=== PATIENT | male | born 1945 | race Caucasian/White ===

== ENCOUNTER 2019-04-05 11:18 | Day surgery (SDC) | payer MEDICARE, BC ==
[2019-04-02 17:01] VITALS: BMI 28.8
[~2019-04-05 11:18] MED LIST: Lidocaine 1% PF 5 ML VIAL ONE; Ondansetron PF 4 MG/2 ML Vial ONE; PROPOFOL 200 MG/20 ML VIAL ONE
[2019-04-05] MEDS ORDERED: Fentanyl 100 MCG/2 ML VIAL ONE (13:08)
[2019-04-05] MEDS ORDERED: Iothalamate Meglumine 60% 50 ML VIAL FS ONE (13:10)
[2019-04-05] MEDS ORDERED: ceFAZolin Sodium (SDC) 2 GM/100 ML BAG ONE (13:12)
[2019-04-05 13:24] LABS: #Lymphocytes 1.7 thou/uL (1.20-3.40); #Monocytes 1.3 thou/uL (0.11-0.59); #Neutrophils 6.6 thou/uL (1.40-6.50); %Basophils 0.3 % (0.0-1.0); %Eosinophils 0.5 % (0.0-10.0); %Lymphocytes 17.4 % (21.0-51.0); %Monocytes 13.3 % (0.0-10.0); %Neutrophils 68.6 % (42.0-75.0); Hemoglobin 15.3 g/dL (14.0-18.0); Mean Corpuscular Volume 96.8 fL (78.0-98.0); Platelet Count 213 thou/uL (130-400); RBC Distribution Width 11.5 % (11.5-14.5); Red Blood Cell (RBC) Count 4.63 mill/uL (4.70-6.10); White Blood Cell (WBC) Count 9.7 thou/uL (4.8-10.8)
[2019-04-05 13:27] LABS: PTT 26.8 SEC (22.9-36.1)
[2019-04-05 13:28] LABS: Prothrombin Time 12.8 SEC (12.0-14.7)
[2019-04-05 13:43] LABS: Anion Gap 14 mmol/L (10-20); BUN (Urea Nitrogen) 26 mg/dL (8.4-25.7); Calc. Creatinine Clearance 31 mL/min (70-130); Calcium 9.3 mg/dL (7.8-10.44); Carbon Dioxide 26 mmol/L (23-31); Chloride 103 mmol/L (98-107); Estimated GFR-MDRD 25; Glucose 100 mg/dL (83-110); Potassium 4.6 mmol/L (3.5-5.1); Sodium 138 mmol/L (136-145)
--- NOTE | 2019-04-05 14:50 | RAD ---
EXAM: XR IVP Retrograde PROVIDED CLINICAL HISTORY: Placement of ureteral stents. Patient with right flank pain and hematuria. COMPARISON: CT abdomen and pelvis on 03/25/2019. FINDINGS/IMPRESSION: 19 intraoperative fluoroscopic images from bilateral retrograde urogram studies are submitted for int erpretation. The senior bi developer image demonstrates no suspicious calcifications. Left retrograde urogram demonstrates no overt hydronephrosis or hydroureter. No persistent filling de fect is seen within the ureters or renal collecting system on the left. Retrograde study on the right demonstrates dilatation of the right ureter with multiple filling defec ts which may related to gas or small amount of hemorrhage. Further imaging prior to stent placement demonstrates contrast outside the confines of the proximal right ureter suggesting extravasation of c ontrast. Final image does demonstrate a double pigtail right ureteral stent in place. There is mild blunting of the calyces of the right renal collecting system suggesting hydronephrosis with dilatatio n of the proximal right ureter. There is suggestion of a transition point within the mid right ureter at the level of the inferior aspect right sacroiliac joint with mild effacement of the ureter at this location. On the recent CT scan examination, there is mild increased density level and focal dilatation of the ureter in this region. Transitional cell carcinoma in this region is a possib ility. Correlation with intraoperative findings is recommended.
--- NOTE | 2019-04-05 19:02 | OP ---
DATE OF PROCEDURE: 04/05/2019 PREOPERATIVE DIAGNOSES: Recent gross hematuria, right hydronephrosis on recent CAT scan, history of transitional cell carcinoma of the bladder and also elevated creatinine. POSTOPERATIVE DIAGNOSES: Recent gross hematuria, right hydronephrosis on recent CAT scan, history of transitional cell carcinoma of the bladder and also elevated creatinine. 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 ANESTHESIA: General. ESTIMATED BLOOD LOSS: Minimal. FINDINGS: He has a stricture of the bulb, which we have known about for years. I have dealt with it during office cystoscopies in followup for his bladder cancer. This was gently dilated with a 17-Nepalese sheath easily over a guidewire and then that allowed us to pass a 22-Nepalese sheath. The bladder was free of tumor, foreign bodies, or stones. Both ureteral orifices were very small and could not get a cone-tipped 5-Nepalese to intubate them, so we had to use the guidewire and the open-ended Pollack catheter. Retrograde study on the left side showed some air bubbles, but otherwise negative. On the right side, there was a normal-appearing distal ureter and then an area of narrowing of the ureter and obstruction with some difficulty getting contrast to go proximal to it. Once the retrograde study was done, there was bloody efflux from the distal right ureter. We were able to eventually pass an angle tipped Glidewire by this obstructing lesion. Did get a small ureteral leak, in doing this we initially tried a guidewire and then a straight Glidewire and an angled guidewire before being able to get to the ureter above this region. Once the 5-Nepalese Pollack catheter was placed past this region, we drained probably 20 to 25 mL of very dark brownish maroonish color urine, which was probably a lot of old blood within this was sent off for a urine cytology. DRAINS PLACED: A 6 x 24 Polaris double-J stent without a string. An 18-Nepalese Huerta catheter was passed over a guidewire because of the stricture that we had to dilate. Could not do ureteroscopy on him and is hoping we may be able to, but his ureteral orifices were just too small and then with a small ureteral leak that would preclude doing any further also. DESCRIPTION OF PROCEDURE: After obtaining written and verbal consent from the patient after receiving some IV antibiotics, he was taken to the operating suite. He was placed in a supine position on the treatment table. PlexiPulses were placed on his lower extremities and turned on. He was given a general anesthetic and oral obturator intubation. He was then placed in the dorsal lithotomy position, and he was sterilely prepped and draped for cystoscopy. The C-arm was placed over him so that his abdomen and pelvis were easily seen. Cystoscopy was initially performed with a 22-Nepalese sheath. It passed down to the level of the stricture, but not guidewire was fed across this and into the bladder and then this was backloaded through a 17-Nepalese sheath, which was well lubricated and using a 30-degree lens easily passed across the stricture into the bladder. The bladder was examined with 30 and the 70-degree lens. The guidewire was then replaced, and then that sheath was removed and then we went in with a 22-Nepalese sheath easily passed through the stricture and into the bladder. At this point, we did a left retrograde, initially we had a 5-Nepalese cone-tipped catheter flushed with contrast, but we could not get the very small left ureteral orifice to accept this. We then used a guidewire. We could get up 2 to 3 cm with a guidewire then passed the open-ended catheter over this and then removed the guidewire and injecting contrast and doing a retrograde study of the left side apart from some air bubbles that looked normal and did drain well. We then attempted the same on the right. Also, the Pollack catheter would not go through the right ureteral orifice because of its size, so we fed a guidewire up a centimeter so and then a Pollack catheter over this, removing the guidewire and injecting contrast in a retrograde manner that showed a few 3 to 4 cm of the distal ureter to be normal before sharply and did an abrupt area of narrowing. There was also some blood coming around the open-ended catheter at this point when the contrast was stopped injected. We did get a little bit of contrast to go proximal to this area in a tortuous ureter. We then attempted to pass a guidewire unsuccessfully, straight Glidewire unsuccessfully and then an angled guidewire, which we were able to manipulate by. During this process, we did get a small ureteral perforation. Once we were by this obstructing lesion with the angled Glidewire, we were able to pass the 5-Nepalese Pollack catheter up over the Glidewire into the dilated ureter proximal to this lesion. We were able to drain about 25 mL of the brownish maroonish urine that probably is lot of old blood and this was all sent for urine cytology. Had no odor to it. We then injected some contrast with the tip of the Pollack catheters and area of the renal pelvis to fill out the renal pelvis, which was mildly to moderately dilated. We then fed a 0.003 guidewire through the Pollack catheter and removed the Pollack catheter and advanced over the guidewire. A 6 x 24 Polaris double-J stent pushing it up into place and gave a pusher, so this proximal coil in the renal pelvis and its distal end coiled in the bladder when the wire was removed. At this point, we fed a guidewire through the 22-Nepalese sheath into the bladder and then removed the sheath and then over the guidewire, passed an 18-Nepalese Huerta catheter and placed 20 mL in the balloon. We irrigated the catheter 2 to 3 times with some sterile water was irrigating easily. There was no significant bleeding. At this point, the patient was awakened and extubated and taken by kody to the recovery room. Job ID: [id number]
== END 2019-04-05 17:10 | disposition home or self-care (01) ==
LOC: SDC 11:18
PROVIDERS: ATTEND Urology
PROC: 0T768DZ Dilation of Right Ureter with Intraluminal Device, Via Natural or Artificial Opening Endoscopic (ICD-10-PCS; principal; 2019-04-05)
PROC: 0WHR8YZ Insertion of Other Device into Genitourinary Tract, Via Natural or Artificial Opening Endoscopic (ICD-10-PCS; 2019-04-05)
DX: C67.9 Malignant neoplasm of bladder, unspecified (principal); N13.39 Other hydronephrosis; R31.0 Gross hematuria; I10 Essential (primary) hypertension; E78.00 Pure hypercholesterolemia, unspecified; K21.9 Gastro-esophageal reflux disease without esophagitis; Z88.2 Allergy status to sulfonamides
CPT/HCPCS: 52332; 74420; 80048; 85025; 85610; 85730; 88112; C1758; C1769; 36415; J0690; J2001; J2405; J2704; J3010

== ENCOUNTER 2019-04-29 08:16 | Outpatient (CLI) | payer MEDICARE, BC ==
--- NOTE | 2019-04-29 14:06 | PET ---
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 Exam requ ested for initial staging. TECHNIQUE: PET scanning with CT attenuation correction was performed from the base of the brain through the prox imal thighs following the intravenous administration of 11.3 mCi F18-FDG in the left antecubital tony a. COMPARISON: None. CORRELATION: CT abdomen and pelvis of 03/25/19 from [facility]. FINDINGS: There is increased uptake adjacent to the right distal ureter with a SUV of 13. No yaw hypermetabolism is seen in the neck, chest, or abdomen. No hypermetabolic pulmonary nodules, liver, or adrenal lesions are seen. There are multiple hypermetabolic foci in the pelvic bones with SUV of 2.9 in the left iliac bone, 3. 8 in the right iliac bone, 5.8 at S1, 5.8 in the right superior acetabulum, and 2.4 in the left super ior acetabulum. There is physiologic activity in the GI and tracts, and the visualized portions of the brain. The CT scan used for attenuation correction demonstrates no evidence of pleural effusions or ascites. 3.0 cm infrarenal abdominal aortic aneurysm is again seen. There is colonic diverticulosis. 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 POS: RAZ
== END 2019-04-29 08:17 | disposition home or self-care (01) ==
LOC: PET 08:16
PROVIDERS: ATTEND Internal Medicine Hematology & Oncology
DX: C66.1 Malignant neoplasm of right ureter (principal)
CPT/HCPCS: 78815; A9552

== ENCOUNTER 2019-05-07 08:18 | Day surgery (SDC) | payer MEDICARE, BC ==
[2019-05-06 11:55] VITALS: BMI 31.1
[2019-05-07 09:00] LABS: Hemoglobin 13.8 g/dL (14.0-18.0); Mean Corpuscular HGB CONC 33.1 g/dL (32.0-36.0); Mean Corpuscular Hemoglobin 31.4 pg (27.0-31.0); Mean Corpuscular Volume 95.1 fL (78.0-98.0); Platelet Count 306 thou/uL (130-400); RBC Distribution Width 11.3 % (11.5-14.5); Red Blood Cell (RBC) Count 4.39 mill/uL (4.70-6.10)
[2019-05-07 09:03] LABS: PTT 23.9 SEC (22.9-36.1); Prothrombin Time 13.1 SEC (12.0-14.7)
[2019-05-07] MEDS ORDERED: Fentanyl 100 MCG/2 ML VIAL ONE (10:16)
[2019-05-07] MEDS ORDERED: Sodium Bicarbonate 2.5 MEQ/5 ML VIAL ONE (10:17)
[2019-05-07] MEDS ORDERED: Midazolam HCl 2 mg/2 ml Vial ONE (10:17)
[2019-05-07 11:54] VITALS: BP 113/79; TEMP 97.7
--- NOTE | 2019-05-07 12:29 | CT ---
CT Deep Bone Perc Biopsy History: Neoplasm right ureter. Abnormality seen on recent PET/CT Comparison: None. Findings: Patient was brought to the CT suite. All questions were answered. Informed consent was obta ined. Timeout performed. The patient's posterior pelvis was prepped and draped in normal sterile fashion. A total of 10 mL of lidocaine was used to anesthetize the soft tissues. Using a 10-gauge catheter the right iliac bone was accessed. A total of 10 mL bone marrow and a 2 cm core was obtained. This was given to the cytopa thology technologist. The patient tolerated the procedure well without complication. Impression: Technically successful CT-guided bone marrow biopsy.
== END 2019-05-07 12:48 | disposition home or self-care (01) ==
LOC: RAD 08:18
PROVIDERS: ATTEND Internal Medicine Hematology & Oncology
DX: C66.1 Malignant neoplasm of right ureter (principal); I12.9 Hypertensive chronic kidney disease with stage 1 through stage 4 chronic kidney disease, or unspecified chronic kidney disease; N18.9 Chronic kidney disease, unspecified; E78.5 Hyperlipidemia, unspecified; Z79.82 Long term (current) use of aspirin; Z79.899 Other long term (current) drug therapy; Z85.51 Personal history of malignant neoplasm of bladder; Z88.2 Allergy status to sulfonamides; Z88.5 Allergy status to narcotic agent
CPT/HCPCS: 20225; 77012; 85027; 85097; 85610; 85730; 88184; 88237; 88264; 88280; 88305; 88311; 88313; 88341; 88342; J2250; J3010

== ENCOUNTER 2019-05-17 12:10 | Outpatient (CLI) | payer MEDICARE, BC ==
[2019-05-17 13:59] LABS: Anion Gap 15 mmol/L (10-20); BUN (Urea Nitrogen) 22 mg/dL (8.4-25.7); Calc. Creatinine Clearance 0 mL/min (70-130); Calcium 9.1 mg/dL (7.8-10.44); Carbon Dioxide 21 mmol/L (23-31); Chloride 102 mmol/L (98-107); Estimated GFR-MDRD 37; Glucose 90 mg/dL (83-110); Potassium 4.6 mmol/L (3.5-5.1); Sodium 133 mmol/L (136-145)
[2019-05-17 14:03] LABS: Band 2 % (5-11); Eosinophils 1 % (0-10); Hemoglobin 12.4 g/dL (14.0-18.0); Lymphocytes 8 % (21-51); MDiff Complete? YES; Mean Corpuscular HGB CONC 33.3 g/dL (32.0-36.0); Mean Corpuscular Hemoglobin 31.6 pg (27.0-31.0); Mean Corpuscular Volume 94.9 fL (78.0-98.0); Mean Platelet Volume 6.9 fL (7.4-10.4); Monocytes 12 % (0-10); Neutrophil 76 % (42-75); Platelet Count 351 thou/uL (130-400); Platelet Morphology Comment Appears Adequate; RBC Distribution Width 11.3 % (11.5-14.5); RBC Morphology Normal; Red Blood Cell (RBC) Count 3.93 mill/uL (4.70-6.10); White Blood Cell (WBC) Count 12.3 thou/uL (4.8-10.8)
== END 2019-05-17 12:11 | disposition home or self-care (01) ==
LOC: LABBT 12:10
PROVIDERS: ATTEND Specialist
DX: Z01.812 Encounter for preprocedural laboratory examination (principal); C66.9 Malignant neoplasm of unspecified ureter
CPT/HCPCS: 80048; 85025

== ENCOUNTER 2019-05-18 13:18 | Day surgery (SDC) | payer MEDICARE, BC ==
[2019-05-17 12:40] VITALS: BMI 28.2
[2019-05-18] MEDS ORDERED: Ketorolac Tromethamine 30 MG/ML VIAL ONE (14:24)
[2019-05-18] MEDS ORDERED: PROPOFOL 20 ML ONE (15:02)
[2019-05-18] MEDS ORDERED: Lidocaine 1% (PF) 30 ML VIAL ONE (15:10)
[2019-05-18] MEDS ORDERED: Bupivacaine/Epinephrine 0.25% 30 ML VIAL ONE (15:10)
--- NOTE | 2019-05-18 16:32 | RAD ---
EXAM: Single view of the chest HISTORY: Mediport placement COMPARISON: None FINDINGS: Single view of the chest shows a normal sized cardiomediastinal silhouette. A right subcla vian Mediport is seen with its tip in the superior vena cava. No pneumothorax is seen. There is no evidence of consolidation, mass, or pleural effusion. The bones are unremarkable. IMPRESSION: Status post Mediport placement without evidence of complication.
[2019-05-18] MEDS ORDERED: PROPOFOL 200 MG/20 ML VIAL ONE (21:16)
[2019-05-18] MEDS ORDERED: Lidocaine 1% PF 5 ML VIAL ONE (21:16)
--- NOTE | 2019-05-19 11:01 | OP ---
DATE OF PROCEDURE: 05/18/2019 PREOPERATIVE DIAGNOSIS: Cancer of the ureter. POSTOPERATIVE DIAGNOSIS: Cancer of the ureter. PROCEDURE PERFORMED: Placement of right subclavian standard-sized power compatible MediPort. ANESTHESIA: Total intravenous anesthesia with local using 0.25% Marcaine with epinephrine. INDICATIONS: The patient is a 74-year-old white male. He was recently diagnosed with cancer of the ureter. MediPort placement is requested for chemotherapy administration. DESCRIPTION OF PROCEDURE: Informed consent was obtained. The patient was taken to the operating room where total intravenous anesthesia was obtained with the patient in supine position. Right periclavicular area was prepped with ChloraPrep and draped in sterile fashion. Local anesthetic was infiltrated and a large-gauge needle was passed under the clavicle in the subclavian vein. Guidewire was passed through the needle and fluoroscopically confirmed to enter the superior vena cava. Additional local anesthetic was infiltrated and transverse incision was created based on needle insertion site. A subcutaneous pocket was dissected inferiorly. Introducer dilator was passed over the guidewire under fluoroscopic guidance. The guidewire and dilator were removed, and the catheter was passed through the introducer. The tip of the catheter was positioned at the atriocaval junction and the catheter was trimmed to the appropriate length and secured to the locking hub of the MediPort. The port was then placed in the subcutaneous pocket where it was secured to the pectoral fascia with 2 interrupted sutures of 3-0 Prolene. The incision was then closed in layers with 3-0 and 4-0 Monocryl. Additional local anesthetic was infiltrated. The port was cannulated with a Perez needle and it aspirated blood freely and was flushed with heparinized saline. Dermabond was placed externally on the skin incision. There were no complications. Blood loss was negligible. The patient tolerated the procedure well and was taken to recovery room in stable condition. FINDINGS: A standard-size power compatible MediPort was selected and placed into the right subclavian vein uneventfully. The patient had typical anatomy and fluoroscopy was used throughout the case. There were no complications and essentially no blood loss. Job ID: [id number]
== END 2019-05-18 17:20 | disposition home or self-care (01) ==
LOC: SDC 13:18
PROVIDERS: ATTEND Specialist
PROC: 05H533Z Insertion of Infusion Device into Right Subclavian Vein, Percutaneous Approach (ICD-10-PCS; principal; 2019-05-18)
DX: C66.9 Malignant neoplasm of unspecified ureter (principal); I10 Essential (primary) hypertension; N28.9 Disorder of kidney and ureter, unspecified; E78.00 Pure hypercholesterolemia, unspecified; K21.9 Gastro-esophageal reflux disease without esophagitis; Z79.82 Long term (current) use of aspirin; Z79.899 Other long term (current) drug therapy; Z88.1 Allergy status to other antibiotic agents; Z88.2 Allergy status to sulfonamides; Z88.5 Allergy status to narcotic agent
CPT/HCPCS: 36561; 71045; C1788; J0131; J0690; J1642; J1885; J2001; J2704

== ENCOUNTER 2019-05-24 03:43 | Inpatient (IN) | payer MEDICARE, BC ==
[2019-05-24 04:17] LABS: ALT (SGPT) 54 U/L (8-55); AST (SGOT) 47 U/L (5-34); Albumin 3.4 g/dL (3.4-4.8); Alkaline Phosphatase 158 U/L (40-110); Anion Gap 16 mmol/L (10-20); BUN (Urea Nitrogen) 24 mg/dL (8.4-25.7); Bilirubin, Total 0.9 mg/dL (0.2-1.2); CK (CPK) 38 U/L (30-200); Calc. Creatinine Clearance 0 mL/min (70-130); Calcium 8.8 mg/dL (7.8-10.44); Carbon Dioxide 23 mmol/L (23-31); Chloride 104 mmol/L (98-107); Estimated GFR-MDRD 43; Globulin 3.5 g/dL (2.4-3.5); Glucose 102 mg/dL (83-110); Potassium 4.7 mmol/L (3.5-5.1); Protein, Total 6.9 g/dL (5.8-8.1); Sodium 138 mmol/L (136-145)
[2019-05-24 04:18] LABS: Hemoglobin 11.4 g/dL (14.0-18.0); Mean Corpuscular HGB CONC 33.3 g/dL (32.0-36.0); Mean Corpuscular Hemoglobin 31.2 pg (27.0-31.0); Mean Corpuscular Volume 93.9 fL (78.0-98.0); Mean Platelet Volume 7.7 fL (7.4-10.4); Platelet Count 201 thou/uL (130-400); RBC Distribution Width 11.6 % (11.5-14.5); Red Blood Cell (RBC) Count 3.64 mill/uL (4.70-6.10); White Blood Cell (WBC) Count 21.3 thou/uL (4.8-10.8)
[2019-05-24 04:25] LABS: Prothrombin Time 12.8 SEC (12.0-14.7)
[2019-05-24] MEDS ORDERED: Aspirin 325 MG TAB ONE (04:25)
[2019-05-24 04:28] LABS: PTT 19.9 SEC (22.9-36.1)
[2019-05-24 04:43] LABS: Band 3 % (5-11); Lymphocytes 13 % (21-51); MDiff Complete? YES; Monocytes 1 % (0-10); Neutrophil 83 % (42-75)
[2019-05-24 07:40] LABS: Troponin I 0.026 ng/mL (< 0.028)
--- NOTE | 2019-05-24 07:52 | CT ---
PRELIMINARY REPORT/[facility]/EMERGENCY AFTER HOURS PROCEDURE Addendum created by Virgil Antunez MD on 05/24/2019 4:01 AM Central Time ([place] & [place]) THIS REPORT CONTAINS FINDINGS THAT MAY BE CRITICAL TO PATIENT CARE. The study was personally discussed on the telephone with care provider SHAAN PRETTY on 05/24/2019 4:01 AM CDT. The results were understood and acknowledged. Initial Report created on 05/24/2019 3:55 AM Bacilio tral Time ([place] & [place]) PROCEDURE INFORMATION: Exam: CT Head without contrast Exam date and time: 05/24/2019 3:48 AM Clinical history: 74 years old, male; Weakness, extremity and weakness, facial; Left; Patient HX: Level 1 stroke alert. Lsn 0315, lt sided weakness in arm, lt sided numbness on lt side, lt side fa cial droop. HX CA. TECHNIQUE: Imaging protocol: Computed tomography of the head without contrast. Other technique: STROKE PROTOCOL was implemented. COMPARISON: No relevant prior studies available. FINDINGS: Brain: Diffuse cerebral age related volume loss and patchy low attenuation in the white matter compatible with chronic small vessel ischemic disease. No midline shift, mass, fluid collection, or evidence of hemorrhage. No loss of soliz-white differentiation. Ventricles: Ventricular enlargement proportional to volume loss. Bones/joints: Unremarkable. No acute fracture. Sinuses: Visualized sinuses are unremarkable. No fluid levels. Mastoid air cells: Visualized mastoid air cells are well aerated. Soft tissues: Unremarkable. Vasculature: Coarse atherosclerotic calcifications in the vertebral and internal carotid arteries. IMPRESSION: 1. Age related changes, no acute intracranial abnormality. 2. Aysha Stroke Program Early CT Score (ASPECTS) = 10. Thank you for allowing us to participate in the care of your patient. Dictated and Authenticated by: Virgil Antunez MD 05/24/2019 3:55 AM Central Time ([place] & [place]) FINAL REPORT CT Brain WO Con: 05/24/2019 12:00 AM CLINICAL HISTORY: Weakness, stroke. COMPARISON: None. FINDINGS: No acute intracranial hemorrhage or mass effect. Reference preliminary report for further details. CTA examination performed separately. Reference separate report for further details IMPRESSION: No acute intracranial hemorrhage or mass effect. Code QA Transcribed Date/Time: 05/24/2019 8:01 AM
--- NOTE | 2019-05-24 08:03 | CT ---
PRELIMINARY REPORT/[facility]/EMERGENCY AFTER HOURS PROCEDURE Addendum created by Leeann Laird MD on 05/24/2019 4:46 AM Central Time ([place] & [place]) Findings were discussed with SHAAN PRETTY at 05/24/2019 4:45 AM CDT. Initial Report created on 05/24/2019 4:38 AM Central Time ([place] & [place]) PROCEDURE INFORMATION: Exam: CT Angiography Head Without And With Contrast Exam date and time: 05/24/2019 3:51 AM Clinical history: 74 years old, male; Patient HX: Level 1 stroke alert. Lsn 0315, lt sided weakness i n arm, lt sided numbness on lt side, lt side facial droop. HX CA. TECHNIQUE: Imaging protocol: Computed tomographic angiography of the head without and with intravenous contrast. 3D rendering: MIP reconstructed images were created and reviewed. Other technique: STROKE PROTOCOL was implemented. COMPARISON: No relevant prior studies available. FINDINGS: Right internal carotid artery: Intracranial segment is patent with no significant stenosis. No aneurysm. Right anterior cerebral artery: No occlusion or significant stenosis. No aneurysm. Right middle cerebral artery: No occlusion or significant stenosis. No aneurysm. Right posterior cerebral artery: No occlusion or significant stenosis. No aneurysm. Right vertebral artery: No occlusion or significant stenosis. No aneurysm. Left internal carotid artery: Intracranial segment is patent with no significant stenosis. No aneurysm. Left anterior cerebral artery: No occlusion or significant stenosis. No aneurysm. Left middle cerebral artery: No occlusion or significant stenosis. No aneurysm. Left posterior cerebral artery: No occlusion or significant stenosis. No aneurysm. Left vertebral artery: No occlusion or significant stenosis. No aneurysm. Basilar artery: No occlusion or significant stenosis. No aneurysm. HEAD: Brain: No definitive hemorrhage. Patchy white matter hypodensities are nonspecific but may be seen in small vessel chronic ischemic changes. No edema. Ventricles: No ventriculomegaly. Bones/joints: No acute fracture. Sinuses: Visualized sinuses are normal. No fluid levels. Mastoid air cells: Visualized mastoids are normal. No mastoid effusion. Soft tissues: Unremarkable. IMPRESSION: No acute findings. ASSESSMENT: ASPECTS (Aysha Stroke Program Early CT Score) is 10. PROCEDURE INFORMATION: Exam: CT Angiography Neck With Contrast Exam date and time: 05/24/2019 3:51 AM Clinical history: 74 years old, male; Patient HX: Level 1 stroke alert. Lsn 0315, lt sided weaknes s in arm, lt sided numbness on lt side, lt side facial droop. HX CA. TECHNIQUE: Imaging protocol: Computed tomography angiography of the neck with intravenous contrast. 3D rendering: MIP reconstructed images were created and reviewed. COMPARISON: No relevant prior studies available. FINDINGS: VASCULATURE: Right common carotid artery: No stenosis. No dissection or occlusion. Right internal carotid artery: Unremarkable extracranial segment. No stenosis. No dissection or occlusion. Right external carotid artery: No occlusion or stenosis of the origin. Right vertebral artery: No stenosis. No dissection or occlusion. Left common carotid artery: No stenosis. No dissection or occlusion. Left internal carotid artery: Unremarkable extracranial segment. No stenosis. No dissection or occlusion. Left external carotid artery: No occlusion or stenosis of the origin. Left vertebral artery: No stenosis. No dissection or occlusion. NECK: Bones/joints: No acute fracture. Soft tissues: No significant soft tissue swelling. There are multiple bilateral pulmonary nodules, approximately 5 mm. IMPRESSION: No acute arterial findings. There are multiple bilateral pulmonary nodules, approximately 5 mm. For patients at low risk (minimal or absent history of smoking and of other known risk factors), no routine follow-up is indicated. For patients at high risk (history of smoking or of other known risk factors), consider optional CT at 12 months. (Xavier et al., Fleischner Society, 2017) COMMENT: Reference per NASCET criteria for degree of stenosis: Mild: less than 50% stenosis. Moderate: 50- 69% stenosis. Severe: 70-94% stenosis. Near occlusion: 95-99% stenosis. Thank you for allowing us to participate in the care of your patient. Dictated and Authenticated by: Leeann Chanrda MD 05/24/2019 4:38 AM Central Time ([place] & [place]) FINAL REPORT CTA head with contrast 3-D volume rendering CTA neck with contrast 3-D volume rendering: FINDINGS: Final report is in agreement with preliminary interpretation, in that there is no large, ce ntral vessel occlusion. There is diminutive contrast noted within the anterior branches of right MCA, distally, difficult to further delineate. The possibility of peripheral hypoperfusion in this region cannot be excluded. This could be further elucidated with noncontrast brain MRI to evaluate for acute cytotoxic edema. IMPRESSION: No large, central vessel thrombus or occlusion of the major arterial system of the head and neck. As discussed above, there is diminutive contrast opacification of anterior branches of right MCA, zimmerman ited in assessment due to the small peripheral vascularity of this region. Given history of stroke, this could be further assessed with follow-up brain MRI, in order to exclude ischemia related to the anterior division right MCA territory. Transcribed Date/Time: 05/24/2019 8:07 AM
[2019-05-24] MEDS ORDERED: Labetalol HCl 100 MG/20 ML VIAL SLOW IVP PRN (10:09)
[2019-05-24] MEDS ORDERED: Ondansetron PF 4 MG/2 ML Vial IVP PRN (10:09)
[2019-05-24] MEDS ORDERED: Ondansetron ODT 4 MG TAB PO PRN (10:09)
[2019-05-24] MEDS ORDERED: Furosemide 20 MG TAB PO PRN (10:13)
[2019-05-24 10:33] LABS: Troponin I 0.041 ng/mL (< 0.028)
[2019-05-24] MEDS ORDERED: ISOVUE-370 76%-LOCM 1 ML ONE (12:27)
[2019-05-24 14:24] LABS: Bilirubin Negative (Negative); Blood, Urine 3+ (Negative); Clarity Turbid (Clear); Glucose, Urine (Dipstick) Normal (Negative); Leukocyte 25 Leu/uL (Negative); Nitrite Negative (Negative); Protein, Urine (Dipstick) 70 mg/dL (Neg-Trace); RBC/HPF Greater than 50 HPF (0-3); Squamous Epithelial 0-3 HPF (0-3); Urobilinogen Normal mg/dL (Less than 2)
[2019-05-24 14:35] LABS: Bacteria/HPF 2+ HPF (None Seen)
[2019-05-24 15:55] VITALS: BMI 28.1
--- NOTE | 2019-05-24 17:12 | MRI ---
MRI BRAIN NONCONTRAST: DATE: 05/24/2019 HISTORY: 74-year-old male with stroke symptoms. Left upper extremity weakness. Left facial droop. FINDINGS: In the right upper cerebrum, there is a region of mildly hyperintense T2 signal associated with restr icted diffusion, measuring approximately 4 x 1.5 cm, involving cortical soliz matter and underlying subcortical white matter, including right centrum semiovale, representing an acute or subacute infarc tion. This includes involvement of the right precentral gyrus (motor strip). There are diffuse moderate chronic ischemic white matter changes of the cerebrum. Ventricles are norm al in size and configuration. No evidence of acute intra-axial hemorrhage. No mass effect, midline shift, or extra-axial fluid collection. IMPRESSION: Acute or subacute infarction in right middle cerebral artery territory of small to moderate size, inc luding involvement of motor cortex.
[2019-05-24] MEDS ORDERED: cefTRIAXone\\ROCEPHIN 1 GM in Sodium Chloride 0.9% 100 ML IVPB SCH (18:45)
--- NOTE | 2019-05-24 18:56 | HP ---
HISTORY OF PRESENT ILLNESS: The patient is a 74-year-old male who woke up this morning noticing weakness to his left arm, slurred speech, difficulty speaking and talking, some difficulty swallowing. This occurred all approximately 4 a.m. 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 He had a recent port put in for chemotherapy. He has undergone chemotherapy. Nonetheless, he presented to the emergency room complaining of acute sudden onset of slurred speech, difficulty speaking and talking. He did not note any headache, any recent injuries. No falls. No trauma. He has no prior history of stroke-related phenomena. He notes no chest pain, no shortness of breath. He is currently now resting and feeling well. He still reports difficulty speaking and talking with weakness to his left upper extremity and some weakness to his left lower extremity. CT scan of brain did not reveal any acute changes. ALLERGIES: HE IS ALLERGIC TO TRAMADOL AND SULFA. CURRENT MEDICATIONS: Documented in the chart. PAST MEDICAL HISTORY: Significant for the above noted carcinoma as well as recent placement of port to the right upper chest. Chemotherapy has been started. Medical history is otherwise positive for hypertension and hypercholesterolemia. SOCIAL AND PERSONAL HISTORY: He is . He does not smoke. REVIEW OF SYSTEMS: GI: Negative. : Negative. CARDIOVASCULAR: Negative. NEUROLOGIC: Positive as above. PHYSICAL EXAMINATION: VITAL SIGNS: Blood pressure 145/89, pulse 78, respirations 14, temperature 97.8, and O2 saturations 97%. GENERAL: He is alert, active, does not appear in any distress. HEENT: Normocephalic, atraumatic. Extraocular muscles intact. Sclerae and conjunctivae clear. NECK: Supple. Full range of motion. No masses. No bruits auscultated. Thyroid is midline without thyromegaly or thyroid masses. LUNGS: Clear. HEART: Reveals a regular rate and rhythm. No murmurs, gallops, or rubs. ABDOMEN: Soft and nontender. Bowel sounds are present and active. No hepatosplenomegaly is noted. There is no evidence of rebound or guarding. NEUROLOGIC: He is alert and oriented x3. He has a slight droop to his left facial area. There is weakness of his left upper extremity hand, hand grasp, flexion and extension of the elbow and shoulder. He is able to lift his left lower extremity against gravity. IMAGING STUDIES: CT scan of the brain shows no evidence of acute injuries. LABORATORY DATA: His white blood count is 21.3, hemoglobin 11.4, hematocrit 34.2. Sodium 138, potassium 4.7, chloride 104, CO2 of 23, BUN 24, and creatinine 1.57. IMPRESSION: Acute cerebrovascular accident with demonstrable neurological weakness. PLAN: 1. The patient has been placed on Plavix at this time. 2. Complete neurological workup with MRI, 2D echocardiogram, carotid ultrasound will be obtained. Neurological consult has been placed. 3. Due to my inability to continue to rounding on the patient as of tomorrow, we will transfer his care to the Hospitalist Service. The patient has been informed of this finding. Job ID: [id number]
[2019-05-24] MEDS: Atorvastatin Calcium 40 MG TAB PO SCH (20:53)
[2019-05-24] MEDS: Acetaminophen 325 MG TAB PO PRN (20:53)
--- NOTE | 2019-05-25 00:03 | CON ---
DATE OF CONSULTATION: 05/24/2019 HISTORY OF PRESENT ILLNESS: This is a 74-year-old white male whom I have known for quite a long time, has a history of urethral stricture that occasionally has required dilatation. 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 He has had a stent placed for that as he had a ureteral obstruction and elevated creatinine. His creatinine has improved some, but is still elevated. He is receiving chemotherapy currently while the kidney is still working and unobstructed, but will likely be looking at surgery after 3-4 courses of chemotherapy. He has been referred down to Dr. Avila at [facility] and he has seen the oncologist there. I do not think he is seeing Dr. Avila, but he is only set up to see him. Since a stent was placed, he has been having hematuria. His urine currently is a kind of a brown color. He passes occasional clots, had one episode where he had to catheterize himself, which he has done before because of the stricture and had some clots come out. He came in to the ER today because of left hemiparesis and facial droop and he has had a right middle cerebral artery small to moderate infarction on his MRI. It looks like he is going to be started on Plavix and aspirin for this and we will have to watch his urine during that time. His white count was elevated at 23,000. I would assume this was related to the stroke. Coags were normal. His creatinine currently is 1.57 and reviewing the creatinine, this is actually improving. He is currently afebrile and with stable vital signs. On his exam his flank is nontender. His abdomen is soft. He is not having trouble urinating and as mentioned his urine is kind of a brown color. The urine showed greater than 50 red cells, 11 to 20 white cells, 2+ bacteria. We will go ahead and get a urine culture set up on him. He has been on Macrodantin since the stent has been in. I do not think he needs reimaging currently of the urinary tract. I think the bleeding is probably coming from the stent and the tumor. Hopefully, it would not get worse on the Plavix. So, we will check him while he is in the hospital, see what the urine culture shows and hopefully he can recover from the CVA. Job ID: [id number]
[2019-05-25] MEDS: Acetaminophen 325 MG TAB PO PRN ×2 (05:02→21:28)
[2019-05-25 08:18] LABS: Hemoglobin 10.9 g/dL (14.0-18.0); Mean Corpuscular HGB CONC 33.1 g/dL (32.0-36.0); Mean Corpuscular Hemoglobin 30.2 pg (27.0-31.0); Mean Corpuscular Volume 91.4 fL (78.0-98.0); Mean Platelet Volume 7.2 fL (7.4-10.4); Platelet Count 149 thou/uL (130-400); RBC Distribution Width 11.8 % (11.5-14.5); Red Blood Cell (RBC) Count 3.62 mill/uL (4.70-6.10); White Blood Cell (WBC) Count 11.5 thou/uL (4.8-10.8)
[2019-05-25 08:36] LABS: Anion Gap 10 mmol/L (10-20); BUN (Urea Nitrogen) 26 mg/dL (8.4-25.7); Calc. Creatinine Clearance 55 mL/min (70-130); Calcium 8.5 mg/dL (7.8-10.44); Carbon Dioxide 25 mmol/L (23-31); Cardiac Risk 4.9 (Less than 4.5); Chloride 106 mmol/L (98-107); Cholesterol 117 mg/dl (< 200 Desired); Estimated GFR-MDRD 55; Glucose 119 mg/dL (83-110); HDL Cholesterol 24 mg/dL (>60 Neg Risk); LDL Cholesterol, Calculated 68 mg/dL; Potassium 4.4 mmol/L (3.5-5.1); Sodium 137 mmol/L (136-145); Triglycerides 123 mg/dL (Less than 150)
[2019-05-25 08:37] LABS: Band 2 % (5-11); Lymphocytes 14 % (21-51); MDiff Complete? YES; Monocytes 1 % (0-10); Neutrophil 83 % (42-75); Platelet Morphology Comment Appears Adequate; Polychromasia SLIGHT = 2-3 cells (100X) (0-2/hpf)
[2019-05-25] MEDS ORDERED: Aspirin 81 mg Enteric Coated Tablet PO SCH (09:00)
[2019-05-25] MEDS ORDERED: Prevnar 13-Val Conj/PF 0.5 ML SYRINGE IM ONE (09:00)
[2019-05-25] MEDS: Pantoprazole 40 MG GRANULES PACKET PO SCH (09:35)
[2019-05-25] MEDS: Ezetimibe 10 MG TAB PO SCH (09:37)
[2019-05-25] MEDS: Nitrofurantoin Macrocrystal 50 MG CAP PO SCH (09:44)
[2019-05-25] MEDS: Clopidogrel Bisulfate 75 MG TAB PO SCH (09:45)
--- NOTE | 2019-05-25 15:49 | PRG ---
DATE OF SERVICE: 05/25/2019 SUBJECTIVE: This is a 74-year-old white male, I am seeing today up in room 204 at [place], [place]. The patient was admitted yesterday with a cerebral infarct. 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 He has a right ureteral stent placed. He started chemotherapy for this with a plan to be 3 to 4 courses of chemotherapy followed by surgery. He has had gross hematuria off and on ever since the stent has been placed and he still has gross hematuria, now it is kind of brownish in color, kind looks like actually kind of old blood. He has been afebrile overnight. His vital signs are stable. His pulse is in the 80s. His urinalysis yesterday had red cells and white cells and some bacteria. I suspect this is probably related to the stent being in, although I cannot document the bacteria as being for that reason, but he has been on Macrobid. He did a urine culture yesterday and there is no growth at 24 hours on that. Apart from the Macrobid, he has not received any antibiotics prior to doing the urine culture, although I did give him 1 g of Rocephin last night, but I do not believe I will repeat that today. He has been had additional medications of Plavix started and he has been on aspirin. His abdomen is soft and nontender. He has no flank tenderness. Looking at his urine, it is not clearing. It is staying kind of a tea color. His creatinine today is 1.27, which is better than 1.57 when he was here yesterday. His coags were normal. His hemoglobin today is 10.9, was 11.4 yesterday, so it really has not significantly changed. His white count which was 21,000 yesterday was 11.5 and his platelet count is 149. IMPRESSION AND PLAN: 1. Gross hematuria. 2. Transitional cell cancer, right ureter. Right now, managed with the stent, so that his kidney drains to keep his kidney function as normal as possible and then chemotherapy. He is due for chemotherapy in another couple weeks. I think his blood in his urine will persist as it has been there ever since the stents been in and it may get worse with the Plavix. Hopefully, it will not do, then we will may have to start him on some continuous irrigation, but currently he is not voiding with any difficulty. I do not see that he needs a Huerta catheter at this time. If it is possible for him to stop his aspirin and just be on the Plavix that would perhaps diminish his risks for bleeding. So from my plan, I would not add anything more at this time except to be sure his final urine culture is negative. If it is negative, then I would recommend we keep him on the Macrodantin, which he has been on to help prevent any infections from occurring while he has the stent in. If his urine grows anything different on microbiology, then we could treat him with a week of antibiotics to cover that and hold the Macrodantin and then restarted after that time. I will be leaving town tomorrow and I will be gone for the next seven days. There is a urologist available to each day through the call service if urologist is needed for any further care in this patient. He already has established followup with me, I believe in the office. Job ID: [id number]
--- NOTE | 2019-05-25 19:22 | PDOC.HOSPP ---
- Subjective Encounter Date: 05/25/19 Encounter Time: 19:05 Subjective: f/u for acute R MCA distribution CVA on dual anti-platelet therapy with ASA/ Plavix. States LUE flaccid but moving LLE. Stood briefly with PT at bedside. - Objective Vital Signs & Weight: Vital Signs (12 hours) Temp Pulse Pulse Pulse Resp BP BP 05/25/19 16:00 98.4 F 80 18 05/25/19 15:34 80 118/67 05/25/19 11:26 98.1 F 81 16 05/25/19 09:28 05/25/19 08:59 94 102 H 136/78 131/74 05/25/19 07:46 97.4 F L 84 18 BP Pulse Ox 05/25/19 16:00 118/67 92 L 05/25/19 15:34 05/25/19 11:26 124/74 94 L 05/25/19 09:28 92 L 05/25/19 08:59 05/25/19 07:46 129/80 92 L Weight Admit Weight 174 lb 4.8 oz Weight 174 lb 4.8 oz I&O: 05/24/19 05/25/19 05/26/19 06:59 06:59 06:59 Intake Total 150 Output Total 200 Balance -50 Result Diagrams: 05/25/19 08:02 05/25/19 08:02 Additional Labs: Microbiology 05/24/19 18:35 Urine voided Urine Culture - Preliminary NO GROWTH AT 24 HOURS Laboratory Tests 05/24/19 05/24/19 05/25/19 03:48 03:48 08:02 WBC 21.3 H Hgb 11.4 L Neutrophils % (Manual) 83 H Creatinine 1.57 H Triglycerides 123 Cholesterol 117 LDL Cholesterol, Calc 68 HDL Cholesterol 24 05/25/19 08:02 WBC Hgb Neutrophils % (Manual) 83 H Creatinine Triglycerides Cholesterol LDL Cholesterol, Calc HDL Cholesterol Radiology Reviewed by me: Yes (MRI brain - R MCA distribution infarct) EKG Reviewed by me: Yes (Tele - SR) Hospitalist ROS - Medication Medications: Active Medications Generic Name Dose Route Start Last Admin Trade Name Freq PRN Reason Stop Dose Admin Acetaminophen 650 mg 05/24/19 10:09 05/25/19 05:02 Tylenol PO 650 mg Q4H PRN Administration Headache/Fever/Mild Pain (1-3) Aspirin 325 mg 05/25/19 09:00 05/25/19 09:38 Ecotrin PO 325 mg DAILY JENN Administration Atorvastatin Calcium 40 mg 05/24/19 21:00 05/24/19 20:53 Lipitor PO 40 mg HS JENN Administration Clopidogrel Bisulfate 75 mg 05/25/19 09:00 05/25/19 09:45 Plavix PO 75 mg DAILY JENN Administration Ezetimibe 10 mg 05/25/19 09:00 05/25/19 09:37 Zetia PO 10 mg QAM JENN Administration Metoprolol Succinate 50 mg 05/25/19 09:00 05/25/19 09:37 Toprol Xl PO 50 mg QAM JENN Administration Nitrofurantoin Macrocrystals 100 mg 05/25/19 09:00 05/25/19 09:44 Macrodantin PO 100 mg DAILY JENN Administration Pantoprazole Sodium 40 mg 05/25/19 09:00 05/25/19 09:35 Protonix PO 40 mg QAM JENN Administration - Exam General Appearance: NAD, awake alert Eye: PERRL, anicteric sclera ENT: normocephalic atraumatic, no oropharyngeal lesions Neck: supple, symmetric, no JVD, no thyromegaly, no lymphadenopathy Heart: RRR, no murmur, no gallops, no rubs, normal peripheral pulses Respiratory: CTAB, no wheezes, no rales, no ronchi, normal chest expansion Gastrointestinal: soft, non-tender, non-distended, normal bowel sounds Extremities: no cyanosis, no clubbing, no edema Skin: normal turgor, no lesions Neurological - other findings: LUE flaccid, LLE weakness but moves on command, L facial asymmetry Musculoskeletal: generalized weakness Psychiatric: normal affect, A&O x 3 Hosp A/P (1) Acute CVA (cerebrovascular accident) Code(s): I63.9 - CEREBRAL INFARCTION, UNSPECIFIED Status: Acute Plan: Continue stroke protocol, ASA/Plavix, PT/OT for mobilization, Rehab options (2) Left hemiparesis Code(s): G81.94 - HEMIPLEGIA, UNSPECIFIED AFFECTING LEFT NONDOMINANT SIDE Status: Acute Plan: LUE flaccid, see above (3) Dysarthria Code(s): R47.1 - DYSARTHRIA AND ANARTHRIA Status: Acute Plan: Improved, CHAIN DYER evaluation, tolerating po intake (4) Urothelial carcinoma Code(s): C68.9 - MALIGNANT NEOPLASM OF URINARY ORGAN, UNSPECIFIED Status: Chronic Plan: Currently s/p chemotx, plan for serial chemotx, Macrobid (5) CKD (chronic kidney disease), stage III Code(s): N18.3 - CHRONIC KIDNEY DISEASE, STAGE 3 (MODERATE) Status: Chronic Plan: Appears at baseline, avoid nephrotoxic meds and limit contrast exposure - Plan continue antibiotics, PT/OT, social media marketing analyst, speech therapy, out of bed/ ambulate, DVT proph w/SCDs Stable currently Continue routine stroke protocol ASA/Plavix Continue Macrobid Rehab screening in progress
[2019-05-25] MEDS: Atorvastatin Calcium 40 MG TAB PO SCH (21:28)
--- NOTE | 2019-05-25 23:29 | CON ---
DATE OF CONSULTATION: 05/25/2019 CONSULTING PHYSICIAN: Hospitalist Service. IMPRESSION: 1. Probable thrombotic stroke in the right middle cerebral artery territory with left-sided weakness. 2. Bladder cancer. 3. Aspirin failure. 4. History of coronary artery disease. PLAN: 1. Review echocardiogram. 2. Add Plavix. 3. Consider outpatient EKG monitoring to rule out intermittent atrial fibrillation. HISTORY OF PRESENT ILLNESS: Mr. Contreras is a 74-year-old man, who has been undergoing treatment for bladder cancer. He presented with weakness on the left side yesterday and never had any warning symptoms. Arm is severely affected. He notes a little heaviness in the left leg. He has not had any trouble swallowing. He has not felt like he is having any trouble speaking. His MRI of the brain showed a right MCA area of infarction. CT angiogram did not show any significant stenosis of the carotids or major vessels of the [place]. His lipid profile showed a ratio of 4.9. His vital signs have been stable and he has been afebrile since admission. His echocardiogram is pending. His EKG shows normal sinus rhythm. PAST MEDICAL HISTORY: As listed above. ALLERGIES: SULFA, TRAMADOL. SOCIAL HISTORY: No tobacco or alcohol use. FAMILY HISTORY: Noncontributory. REVIEW OF SYSTEMS: Ten-system review of systems is otherwise negative. PHYSICAL EXAMINATION: GENERAL: He is a healthy-appearing elderly man, who is lying in bed, in no distress. VITAL SIGNS: Blood pressure 118/67, pulse 80, respirations 18, and temperature 98.4. HEENT: Pupils are equal and reactive. Conjunctivae clear. Oropharynx clear. NECK: Supple. EXTREMITIES: No cyanosis or edema. NEUROLOGIC: He is alert and cooperative. Speech is fluent and clear. There is a slight flattening of the left nasolabial fold. He has no movement in the left upper extremity. He has antigravity strength in the left leg with reasonably good resistance. Sensation is subjectively intact on the left side other than the lower face. No tremor. Dysmetria was present. No abnormal movements were seen. LABORATORY STUDIES: White blood cell count was 21.3, hemoglobin 11.4. Coags were in normal limits. His electrolytes were unremarkable other than a creatinine of 1.57. His urine showed hematuria and 11 to 20 white cells. SUMMARY: This is an elderly gentleman with acute stroke and is possible it could be a thrombotic event of a distal branch of the MCA. Given his history of coronary artery disease, I would suggest we might have further evaluation as an outpatient to rule out atrial fibrillation. I agree with current management. Otherwise, he would be a good candidate for rehab. Job ID: [id number]
[2019-05-26] MEDS: Pantoprazole 40 MG GRANULES PACKET PO SCH (08:35)
[2019-05-26] MEDS: Ezetimibe 10 MG TAB PO SCH (08:36)
[2019-05-26] MEDS: Clopidogrel Bisulfate 75 MG TAB PO SCH (08:37)
[2019-05-26] MEDS: Nitrofurantoin Macrocrystal 50 MG CAP PO SCH (08:38)
[2019-05-26] MEDS ORDERED: Aspirin 325 mg Enteric Coated Tablet PO SCH (09:00)
[2019-05-26 15:50] VITALS: BP 107/58; TEMP 98.9
--- NOTE | 2019-05-26 19:49 | DIS ---
DATE OF ADMISSION: 05/24/2019 DATE OF DISCHARGE: 05/26/2019 DISCHARGE DIAGNOSES: 1. Acute cerebrovascular accident of right middle cerebral artery distribution, likely thrombotic. 2. Left hemiparesis with left upper extremity flaccid paralysis. 3. Dysarthria, improved. 4. Urothelial carcinoma, status post chemotherapy. 5. Chronic kidney disease stage 3. CONSULTATIONS: 1. Dr. Morgan with Neurology Service. 2. Dr. Chapman with Urology Service. PERTINENT LABORATORY AND X-RAY FINDINGS: Creatinine ranged between 1.27 to 1.57. Estimated GFR ranged between 43 to 55. AST 47, ALT of 54, alkaline phosphatase 158. Troponin I ranged between 0.026 to 0.041. Total cholesterol 117, triglycerides 123, HDL of 24, LDL 68. CBC showed a white blood cell count ranging between 11.5 to 21.3, hemoglobin of 11, hematocrit 33. Urine culture dated 05/24/2019, showed no growth at [address] of the brain without contrast dated 05/24/2019, showed no acute intracranial process. CT angiogram of the [place] dated 05/24/2019, showed no large central vessel thrombus or occlusion. Diminutive contrast opacification of the anterior branches of the right MCA. MRI of the brain dated 05/24/2019, showed acute infarct in the right middle cerebral artery territory of moderate size. HOSPITAL COURSE: The patient was initially admitted to the stroke unit after presenting with left arm weakness, dysarthria, and dysphagia. The patient underwent general stroke protocol including CT imaging of the brain. The patient was noted with CT angiogram, findings concerning for right MCA territorial infarct. MRI imaging of the brain confirmed infarct in this region as previously noted on CT angiogram. The patient received Plavix in addition to aspirin as the patient was chronically on aspirin therapy prior to admission. The patient continued general stroke protocol with overall improvement in left lower extremity weakness, however remained with flaccid paralysis of the left upper extremity. The patient was evaluated by Speech Therapy and placed on a modified oral intake and tolerated without difficulty. The patient overall remained clinically stable with general supportive management and general stroke protocol. Telemetry monitoring showed sinus mechanism without evidence of acute arrhythmia or dysrhythmia. I have examined the patient at the time of discharge and discussed followup instructions. The patient confirmed for transfer to [facility] for ongoing physical, occupational, and speech therapy. DISCHARGE MEDICATIONS: 1. Enteric-coated aspirin 325 mg p.o. daily. 2. Lipitor 40 mg p.o. q.a.m. 3. Zetia 10 mg p.o. daily. 4. Lasix 20 mg p.o. daily p.r.n. 5. Metoprolol succinate 50 mg p.o. q.a.m. 6. Macrobid 100 mg p.o. daily. 7. Protonix 40 mg p.o. q.a.m. 8. Plavix 75 mg p.o. daily. 9. Voltaren gel one application topically daily p.r.n. FOLLOWUP: The patient may follow up with Dr. Olaf Villareal after discharge from [facility]. The patient will follow up with Dr. Himanshu Chapman with Urology Service. CONDITION ON DISCHARGE: Fair. ACTIVITY: Ad vanna, rolling walker with standby/contact guard assistance. DIET: Regular. Ensure t.i.d. with meals. CODE STATUS: Full. DISPOSITION: Discharged to [facility] [place], [place] on 05/26/2019. TIME SPENT: Total time preparing and coordinating discharge is 33 minutes. Job ID: [id number]
[2019-05-27] MEDS ORDERED: FLU VACC TS2019-20(65YR UP)/PF 180 MCG/0.5 ML SYRINGE IM ONE (09:00)
== END 2019-05-26 18:36 | DRG 65 ==
LOC: ERS 03:43 → ERHOLD 04:30 → 2SE 15:49
PROVIDERS: ADMIT Family Medicine; ATTEND Family Medicine
DX: I63.311 Cerebral infarction due to thrombosis of right middle cerebral artery (principal); C66.1 Malignant neoplasm of right ureter; G81.04 Flaccid hemiplegia affecting left nondominant side; R29.810 Facial weakness; R47.81 Slurred speech; E78.5 Hyperlipidemia, unspecified; R29.706 NIHSS score 6; R40.2252 Coma scale, best verbal response, oriented, at arrival to emergency department; R40.2362 Coma scale, best motor response, obeys commands, at arrival to emergency department; R40.2142 Coma scale, eyes open, spontaneous, at arrival to emergency department; R31.0 Gross hematuria; I25.10 Atherosclerotic heart disease of native coronary artery without angina pectoris; R47.1 Dysarthria and anarthria; N18.3 Chronic kidney disease, stage 3 (moderate); Z88.1 Allergy status to other antibiotic agents; Z88.2 Allergy status to sulfonamides; Z88.5 Allergy status to narcotic agent; Z79.82 Long term (current) use of aspirin; Z79.899 Other long term (current) drug therapy
CPT/HCPCS: 36415; 36416; 70450; 70496; 70498; 70551; 80048; 80053; 80061; 81003; 81015; 82550; 82553; 84484; 85007; 85025; 85027; 85610; 85730; 87086; 90471; 90670; 93005; 93306; 94760; G0009; J0696; J3490; Q9966

== ENCOUNTER 2019-06-04 19:26 | Inpatient (IN) | payer MEDICARE, BC ==
[2019-06-04] MEDS ORDERED: Ondansetron PF 4 MG/2 ML Vial ONE (19:51)
[2019-06-04] MEDS ORDERED: Morphine 4 MG/ML VIAL ONE ×2 (19:51→21:06)
[2019-06-04 20:22] LABS: Hemoglobin 11.3 g/dL (14.0-18.0); Mean Corpuscular Hemoglobin 30.6 pg (27.0-31.0); Mean Corpuscular Volume 92.7 fL (78.0-98.0); RBC Distribution Width 13.6 % (11.5-14.5); Red Blood Cell (RBC) Count 3.68 mill/uL (4.70-6.10)
[2019-06-04 20:29] LABS: ALT (SGPT) 54 U/L (8-55); AST (SGOT) 32 U/L (5-34); Albumin 3.7 g/dL (3.4-4.8); Alkaline Phosphatase 191 U/L (40-110); Anion Gap 16 mmol/L (10-20); BUN (Urea Nitrogen) 28 mg/dL (8.4-25.7); Bilirubin, Total 0.8 mg/dL (0.2-1.2); Calc. Creatinine Clearance 0 mL/min (70-130); Carbon Dioxide 25 mmol/L (23-31); Chloride 98 mmol/L (98-107); Estimated GFR-MDRD 33; Globulin 3.3 g/dL (2.4-3.5); Glucose 136 mg/dL (83-110); Potassium 5.1 mmol/L (3.5-5.1); Sodium 134 mmol/L (136-145)
[2019-06-04 20:37] LABS: Band 17 % (5-11); Lymphocytes 13 % (21-51); MDiff Complete? YES; Mean Platelet Volume 6.7 fL (7.4-10.4); Monocytes 9 % (0-10); Neutrophil 61 % (42-75); Platelet Count 469 thou/uL (130-400)
--- NOTE | 2019-06-04 21:17 | CT ---
Exam: Abdomen and pelvic CT scan with IV contrast: HISTORY: 03/25/2019 FINDINGS: Multiple bilateral pulmonary nodules are noted in the visualized lung zones. Up to 1 cm in size. Thes e appear to be new or larger when compared to the prior study showing worrisome for metastasis. Liver, gallbladder, pancreas, spleen, and adrenal glands are unremarkable. The left kidney is unremar kable. There is a right ureteral stent with marked right-sided hydronephrosis and hydroureter down to the level of the bladder. In the bladder there are heterogeneous increased attenuation changes whi ch could represent mass and/or extensive hemorrhage. In addition in the right iliac region there is a large lobulated low-density mass measuring 8.5 x 5.5 cm possibly representing some extensive adenop athy or possibly a urinoma. 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 There is some dilatation of the right common femoral and external iliac vein which could be related t o compression. There is a potential intraluminal thrombus within this right vein. Consider follow-up venous duplex ultrasound in this regard. In addition to the previously noted large right il iac lobulated mass there appear to be multiple other enlarged lymph nodes in the right side of the pelvis the right lower quadrant mesentery and even the central mesentery raise concern for extensive adenopathy. These are new findings compared to the prior study. IMPRESSION: Newly developed bilateral pulmonary nodules evidence for metastasis. Marked hydronephrosis of the rig ht upper collecting system and right ureter down to the level of the bladder which shows extensive abnormal attenuation density within it evidence for extensive tumor and/or hemorrhage. Large multilob ulated low-attenuation mass in the right iliac region probably very extensive adenopathy as well as multiple other masses including a 4 cm diameter pelvic mass and additional adenopathy in the right pe lvis, right iliac region right lower quadrant mesentery and also in the central mesentery evidence for extensive metastatic disease. DILATED RIGHT DISTAL ILIAC AND COMMON FEMORAL VEIN WITH POSSIBLE IN TRALUMINAL THROMBUS. RECOMMEND FOLLOW-UP VENOUS DUPLEX ULTRASOUND IN THIS REGARD. Other findings as above.
[2019-06-04 21:59] LABS: Bilirubin Small (Negative); Blood, Urine Large (Negative); Clarity Turbid (Clear); Glucose, Urine (Dipstick) Negative (Negative); Leukocyte Negative (Negative); Nitrite Negative (Negative); Protein, Urine (Dipstick) > or equal to 300 mg/dL (Neg-Trace); Urobilinogen 0.2 mg/dL (Less than 2)
[2019-06-04 22:00] LABS: Bacteria/HPF Rare-Few HPF (None Seen); RBC/HPF Greater than 50 HPF (0-3); Squamous Epithelial 0-3 HPF (0-3); WBC/HPF 0-3 HPF (0-3)
[2019-06-04] MEDS ORDERED: cefTRIAXone\\ROCEPHIN 1 GM VIAL ONE (22:38)
--- NOTE | 2019-06-05 00:07 | PDOC.EVN ---
Event Note - Event Note Event Note: [id number] HP
[2019-06-05 00:10] VITALS: BMI 27.7
[2019-06-05] MEDS: Sodium Chloride 0.9% 1,000 ML IV SCH ×2 (00:43→14:25)
--- NOTE | 2019-06-05 00:59 | HP ---
CHIEF COMPLAINT: Abdominal pain. HISTORY OF PRESENT ILLNESS: Mr. Contreras is a 74-year-old male with past medical history of transitional cell carcinoma, on chemotherapy; recently diagnosed with deep venous thrombosis, on blood thinners, Eliquis; CVA; coronary artery disease, stents; hyperlipidemia; among others, presents to the emergency room with right lower quadrant abdominal pain that started earlier today. The patient reports history of ureter cancer, had stents placed on March 27 with associated hematuria since the placement. The patient reports he has had one round of chemo and sees Dr. Alonso. Dr. Chapman is his urologist. The patient reports he was diagnosed with DVT recently and placed on the blood thinners. Workup in the emergency room included imaging studies, showed dilatation of the renal collecting system, emergency room physician discussed the case with urologist. The patient is being admitted to the hospital for further management. PAST MEDICAL HISTORY: Ureter cancer, transitional cell carcinoma, coronary artery disease, hyperlipidemia, and deep venous thrombosis. PAST SURGICAL HISTORY: 1. MediPort. 2. Hernia repair. 3. Tonsillectomy. SOCIAL HISTORY: Denies alcohol drinking or smoking history. ALLERGIES: ALLERGIC TO BACTRIM. HOME MEDICATIONS: Please see home medication reconciliation form for updated medications. FAMILY HISTORY: Reviewed and noncontributory. REVIEW OF SYSTEMS: Review of 14 systems negative except what is mentioned in the history of present illness. PHYSICAL EXAMINATION: GENERAL: The patient is awake, alert, does not appear to be in acute distress. VITAL SIGNS: Blood pressure 126/75, pulse 69, respiratory rate is 14, and temperature is 97.5. HEAD AND NECK: Normocephalic, atraumatic. NECK: Supple. No JVD. CHEST: Fair bilateral air entry. HEART: S1, S2. Regular. ABDOMEN: Soft. Mild right lower quadrant tenderness, bowel sounds present. NEUROLOGIC: Awake, alert, oriented x3. PSYCH: Normal mood. DIAGNOSTIC STUDIES: IMAGING STUDIES: CT finding of lymph node involvement to the bladder area, finding also of pulmonary nodules that may represent metastasis. ED physician discussed the case with urologist in detail, he does not recommend nephrostomy at this time. Dr. Leone is the urologist. He recommends holding Eliquis at this time, consider filter for DVT standpoint? LABORATORY RESULTS: WBC count is 21, hemoglobin 11.3, and platelets 469. Sodium 134, potassium 5.1, BUN is 28, creatinine 1.9, and glucose is 136. Urine, there is large amount of blood. ASSESSMENT: 1. Abdominal pain. 2. Acute kidney injury. 3. Hematuria. 4. Recent deep venous thrombosis, on Eliquis in a patient who is having hematuria. 5. Transitional cell carcinoma, on chemotherapy. 6. Coronary artery disease. PLAN: 1. Admit. 2. We will hold anticoagulants for now. 3. Urology is being consulted by ED physician, who does not think the patient needs nephrostomy tube at this time, I recommend holding Eliquis and evaluate for filter. 4. Monitor hemoglobin and hematocrit. 5. IV fluid hydration. 6. Monitor kidney function and urine output. 7. Reconcile home medications. 8. DVT prophylaxis. The patient is anticoagulated. 9. Expected length of stay, two midnights or more. Job ID: [id number]
[2019-06-05] MEDS: Acetaminophen 325 MG TAB PO PRN ×2 (02:12→16:31)
[2019-06-05 05:58] LABS: #Eosinphils 0.1 thou/uL (0.0-0.7); #Monocytes 2.5 thou/uL (0.11-0.59); #Neutrophils 15.4 thou/uL (1.40-6.50); %Basophils 0.1 % (0.0-1.0); %Eosinophils 0.6 % (0.0-10.0); %Lymphocytes 9.8 % (21.0-51.0); %Monocytes 12.5 % (0.0-10.0); Hemoglobin 9.7 g/dL (14.0-18.0); Mean Corpuscular HGB CONC 33.3 g/dL (32.0-36.0); Mean Corpuscular Hemoglobin 30.8 pg (27.0-31.0); Mean Corpuscular Volume 92.4 fL (78.0-98.0); Platelet Count 449 thou/uL (130-400); RBC Distribution Width 13.5 % (11.5-14.5); Red Blood Cell (RBC) Count 3.14 mill/uL (4.70-6.10)
[2019-06-05 06:13] LABS: Anion Gap 15 mmol/L (10-20); BUN (Urea Nitrogen) 29 mg/dL (8.4-25.7); Calc. Creatinine Clearance 35 mL/min (70-130); Calcium 8.3 mg/dL (7.8-10.44); Carbon Dioxide 21 mmol/L (23-31); Chloride 100 mmol/L (98-107); Estimated GFR-MDRD 32; Glucose 116 mg/dL (83-110); Potassium 5.1 mmol/L (3.5-5.1); Sodium 131 mmol/L (136-145)
[2019-06-05] MEDS ORDERED: Pantoprazole 40 MG GRANULES PACKET PO SCH ×2 (09:00→21:00)
[2019-06-05] MEDS ORDERED: Famotidine/PF 20 mg/2ml Vial SLOW IVP SCH (09:00)
[2019-06-05] MEDS ORDERED: Non-Formulary Item 1 EACH (Atorvastatin Calcium [Atorvastatin Calcium] 40 MG) PO SCH (09:00)
[2019-06-05] MEDS: Atorvastatin Calcium 40 MG TAB PO SCH (09:43)
[2019-06-05] MEDS: B & O PR PRN (15:23)
--- NOTE | 2019-06-05 15:56 | CON ---
DATE OF CONSULTATION: HISTORY OF PRESENT ILLNESS: Mina Contreras is a pleasant 74-year-old gentleman, recently diagnosed with transitional cell carcinoma of ureter. He has been having some hematuria for about a couple of months. He has had several stents placed in his right ureter by Dr. Chapman. Yesterday, he was diagnosed with DVT in his right leg and begun on Eliquis. In the past month or so, he has also suffered a right middle cerebral artery CVA and was transiently placed on aspirin, Plavix, and Eliquis and then the patient presented last night with right lower quadrant pain, gross hematuria with clot retention. I have been asked to see him in regard to IVC filter placement. PAST MEDICAL HISTORY: Includes a remote history of coronary artery stenting. He also has a history of dyslipidemia. PAST SURGICAL HISTORY: Includes tonsillectomy, herniorrhaphy, and MediPort placement as well as previously noted stent placements in his ureter. SOCIAL HISTORY: Nonsmoker. . Accompanied by his . ALLERGIES: TO BACTRIM. PHYSICAL EXAMINATION: GENERAL: He is alert, cooperative gentleman, pale in appearance. VITAL SIGNS: Blood pressure is 115/72, heart rate is 85. LUNGS: Clear to auscultation anteriorly. ABDOMEN: Soft and nontender at this time. EXTREMITIES: He has palpable femoral and popliteal pulses as well as right posterior tibial pulse. He has 1+ edema in his right leg. LABORATORY VALUES: Creatinine 2, slightly higher than his baseline of 1.5. ASSESSMENT AND PLAN: I have had a discussion with the patient, , and Dr. Alonso. New findings on his CT of his abdomen includes some small pulmonary nodules in the right lung, which were not present on a PET scan about a month ago. The patient also has a mass in his right pelvis, which probably was compressing his iliac vein on the right contributing to his DVT. At this time, we will plan on placement of an IVC filter tomorrow and informed consent has been obtained. His IVC appears rather small on his current CT scan. Job ID: [id number]
--- NOTE | 2019-06-05 16:18 | PDOC.HOSPP ---
- Subjective Encounter Date: 06/05/19 Encounter Time: 10:30 Subjective: pt up in bed no complains - Objective Vital Signs & Weight: Vital Signs (12 hours) Temp Pulse Resp BP Pulse Ox 06/05/19 12:03 97.4 F L 85 16 115/72 91 L 06/05/19 07:55 97.6 F 75 16 123/61 92 L 06/05/19 07:35 95 06/05/19 04:44 98.0 F 80 18 143/86 H 93 L Weight Weight 172 lb I&O: 06/04/19 06/05/19 06/06/19 06:59 06:59 06:59 Output Total 300 Balance -300 Result Diagrams: 06/05/19 05:42 06/05/19 05:42 Hospitalist ROS - Review of Systems ENT: denies: ear pain, ear discharge, nose pain, nose discharge, nose congestion , mouth pain, mouth swelling, throat pain, throat swelling, other Respiratory: denies: cough, dry, shortness of breath, hemoptysis, SOB with excertion, pleuritic pain, sputum, wheezing, other Cardiovascular: denies: chest pain, palpitations, orthopnea, paroxysmal noc. dyspnea, edema, light headedness, other - Medication Medications: Active Medications Generic Name Dose Route Start Last Admin Trade Name Freq PRN Reason Stop Dose Admin Acetaminophen 650 mg 06/04/19 23:04 06/05/19 02:12 Tylenol PO 650 mg Q4H PRN Administration Headache/Fever/Mild Pain (1-3) Atorvastatin Calcium 40 mg 06/05/19 09:00 06/05/19 09:43 Lipitor PO 40 mg QAM JENN Administration Belladonna Alkaloids/Opium 30 mg 06/05/19 13:32 06/05/19 15:23 B & O [place] 30 mg Q8H PRN Administration Bladder Spasms Sodium Chloride 1,000 mls @ 70 mls/hr 06/05/19 00:00 06/05/19 14:25 Normal Saline 0.9% IV 1,000 mls .[id number] JENN Administration Sodium Chloride 10 ml 06/05/19 09:00 06/05/19 09:43 Flush - Normal Saline IVF 10 ml Q12HR JENN Administration - Exam Neck: negative: supple, symmetric, no JVD, no thyromegaly, no lymphadenopathy, no carotid bruit, JVD Heart: negative: RRR, no murmur, no gallops, no rubs, normal peripheral pulses, irregular, diminshed peripheral pulses, murmur present, II/IV, III/IV Gastrointestinal: negative: soft, non-tender, non-distended, normal bowel sounds , no palpable masses, no hepatomegaly, no splenomegaly, no bruit, no guarding, no rigidity, tender to palpation, distended, diminished bowl sounds, voluntary guarding Musculoskeletal - other findings: right leg swelling Hosp A/P (1) Hematuria Code(s): R31.9 - HEMATURIA, UNSPECIFIED Status: Acute (2) DVT (deep venous thrombosis) Code(s): I82.409 - ACUTE EMBOLISM AND THOMBOS UNSP DEEP VN UNSP LOWER EXTREMITY Status: Acute (3) Left hemiparesis Code(s): G81.94 - HEMIPLEGIA, UNSPECIFIED AFFECTING LEFT NONDOMINANT SIDE Status: Acute (4) CKD (chronic kidney disease), stage III Code(s): N18.3 - CHRONIC KIDNEY DISEASE, STAGE 3 (MODERATE) Status: Chronic
--- NOTE | 2019-06-05 16:53 | CON ---
DATE OF CONSULTATION: 06/05/2019 REASON FOR CONSULTATION: 1. Cancer of the upper urinary tract and bladder. 2. Gross hematuria. 3. Indwelling ureteral stent. 4. Pain in the genitals and suprapubic area. HISTORY OF PRESENT ILLNESS: Mr. Mina Contreras is a pleasant 74-year-old white male, nonsmoker, with a history of industrial exposure to plastics. Previously worked as an IT blanco in a plastics plant. The patient presented to the emergency department on 06/04/2019 from his rehab facility with complaints of right lower quadrant abdominal discomfort, which involved his genitals. The patient also has concurrent gross hematuria. Symptoms became remarkably worse after he was started on Eliquis for a right lower extremity DVT. 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 The patient does have an indwelling right-sided double-J ureteral stent placed by Dr. Himanshu Chapman. The patient was recently evaluated well in hospital by Dr. Chapman on the patient's 05/24/2019 admission. Mr. Contreras reports that his right lower quadrant pain symptoms are very similar to what he had immediately after stent placement, only seem to be worse over the last 24 to 48 hours. He does notice some gross hematuria, which is similar to what he has been having. The patient's right lower extremity has been swollen due to the DVT, and the patient previously suffered a stroke which involved the left arm and left leg. Mr. Contreras reports no external physical issues other than the pain symptoms. PAST MEDICAL HISTORY: 1. 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 2. 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 3. Coronary artery disease, status post stent placement. 4. Hyperlipidemia. 5. Deep venous thrombosis of the right lower extremity. 6. 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 PAST SURGICAL HISTORY: 1. MediPort placement. 2. Transurethral resection of bladder tumor. 3. Ureteroscopic evaluation of urinary tumor. 4. Tonsillectomy. 5. Hernia repair. SOCIAL HISTORY: The patient denies alcohol consumption, and specifically denies any past cigarette smoking history. ALLERGIES: THE PATIENT REPORTS AN ALLERGY TO BACTRIM AND PRESUMPTIVELY SULFA MEDICATIONS. MEDICATIONS: Home medication list, please see the admission medication reconciliation form. This is notable for recent use of Eliquis. FAMILY MEDICAL HISTORY: Noncontributory to the present situation. REVIEW OF SYSTEMS: CONSTITUTIONAL: The patient only reports pain is a major complaint. NEUROLOGIC: History of stroke with paresis of the left hand and that is a lesser degree left leg. GASTROINTESTINAL: No complaints. GENITOURINARY: Bladder cancer as noted in consultation history of present illness. MUSCULOSKELETAL: Negative. Review of systems otherwise negative x12 systems. PHYSICAL EXAMINATION: GENERAL: He is awake, alert, communicative, white male, in no apparent distress. He is evaluated supine in the Oncology Service. The patient is not ambulatory at the present time due to his DVT. HEAD, EYES, EARS, NOSE, AND THROAT: Extraocular movements are intact. Sclerae anicteric. Oropharynx is clear. NECK: Supple. LUNGS: Clear to auscultation bilaterally. CARDIAC: Regular rate and rhythm. ABDOMEN: Soft and nontender. GENITOURINARY: Phallus is circumcised. There are no lesions. Urethral meatus appears adequate. There is no evidence of gross blood at the patient's urethral meatus. Testes appear benign. Palpation of inguinal canals, no evidence of recurrent hernia. Digital rectal examination is deferred due to DVT in bed positioning. EXTREMITIES: Right lower extremity markedly swollen and currently up on pillows due to the DVT. Left leg has minimal motor function. Left arm essentially no motor function of use is fixed in position. VITAL SIGNS: The patient is afebrile. Current temperature is 97.4, pulse 85, respirations 16. The patient's O2 saturation on room air is 91%. Blood pressure is 115/72. LABORATORY STUDIES: The patient's electrolytes appear within normal limits except for blood urea nitrogen at 29, creatinine 2.01, some minor elevation of about 30% from his last set of labs performed earlier in the month. The patient's alkaline phosphatases were elevated yesterday at 191. [place] [address] this morning with a hemoglobin of 9.7, hematocrit of 29.0. There is moderate left shift with 77% neutrophils. Urine culture obtained on 05/24/2019, at the patient's last hospitalization showed no growth. There is no current culture results available. RADIOLOGIC STUDIES: CT scan abdomen and pelvis performed on 06/04/2019, demonstrates the following significant findings, 1. A right-sided stent which appears to be correctly positioned. The patient has a large lobulated low-density mass measuring 8.5 x 5.5 cm, possibly representing adenopathy or possibly a urinoma adjacent to the right ureter. 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 The right common femoral and external iliac vein appear dilated, possibly related to compression with potential intraluminal thrombus in the right vein. 2. Pulmonary evaluation shows bilateral pulmonary nodules up to and slightly over 1 cm in diameter, which are suggestive of possible metastatic disease. There is hydronephrosis of the right upper collecting system, the right ureter down to the level of the bladder. Bladder contains abnormal densities suggestive of either tumor or clot. ASSESSMENT: 1. Gross hematuria. Acute management would include discontinuation of anticoagulation, Eliquis, and/or any other anticoagulants. DVT management should include IVC filter placement. Consultation with this during consultation with CV Surgery. 2. Abdominal pelvic mass. This could be evaluated on retrograde evaluation to establish whether this is a urinoma. At the present time, there is no acute need to perform this study and should wait until after the IVC filter is placed. 3. Bladder spasms and discomfort. I am recommending starting the patient on Azo as well as low-dose belladonna and opioid suppositories which are relatively short acting. This may provide relief to the patient's acute pain symptoms which have been very bothersome to him. His pain consolation appears to be most likely bladder spasms and origin, although there is the presence of a pelvic mass present. Over 70 minutes initial consultation and assessment time was spent in the evaluation and assessment of this patient today. Job ID: [id number]
[2019-06-05] MEDS: Phenazopyridine HCl 97.5 MG TABLET PO SCH (20:47)
[2019-06-05] MEDS: Morphine 2 MG/ML SYRINGE SLOW IVP PRN (21:24)
[2019-06-06] MEDS: Morphine 2 MG/ML SYRINGE SLOW IVP PRN ×2 (01:56→05:27)
[2019-06-06] MEDS: Sodium Chloride 0.9% 1,000 ML IV SCH ×2 (01:59→17:05)
[2019-06-06 03:31] LABS: #Eosinphils 0.1 thou/uL (0.0-0.7); #Lymphocytes 1.5 thou/uL (1.20-3.40); #Monocytes 2.7 thou/uL (0.11-0.59); #Neutrophils 15.6 thou/uL (1.40-6.50); %Basophils 0.2 % (0.0-1.0); %Eosinophils 0.7 % (0.0-10.0); %Lymphocytes 7.3 % (21.0-51.0); %Monocytes 13.3 % (0.0-10.0); %Neutrophils 78.5 % (42.0-75.0); Hemoglobin 8.7 g/dL (14.0-18.0); Mean Corpuscular HGB CONC 33.1 g/dL (32.0-36.0); Mean Corpuscular Volume 93.4 fL (78.0-98.0); Mean Platelet Volume 6.7 fL (7.4-10.4); Platelet Count 492 thou/uL (130-400); RBC Distribution Width 13.6 % (11.5-14.5); White Blood Cell (WBC) Count 19.9 thou/uL (4.8-10.8)
[2019-06-06 03:53] LABS: Anion Gap 15 mmol/L (10-20); BUN (Urea Nitrogen) 30 mg/dL (8.4-25.7); Calc. Creatinine Clearance 33 mL/min (70-130); Calcium 8.2 mg/dL (7.8-10.44); Carbon Dioxide 21 mmol/L (23-31); Chloride 102 mmol/L (98-107); Estimated GFR-MDRD 31; Glucose 125 mg/dL (83-110); Potassium 4.7 mmol/L (3.5-5.1); Sodium 133 mmol/L (136-145)
[2019-06-06] MEDS: B & O PR PRN ×2 (04:13→19:50)
[2019-06-06] MEDS ORDERED: Lidocaine 1% (PF) 30 ML VIAL ONE (07:26)
[2019-06-06] MEDS ORDERED: Fentanyl 100 MCG/2 ML VIAL ONE (08:02)
[2019-06-06] MEDS: Phenazopyridine HCl 97.5 MG TABLET PO SCH ×2 (09:01→19:47)
[2019-06-06] MEDS: Atorvastatin Calcium 40 MG TAB PO SCH (09:01)
[2019-06-06] MEDS: Ezetimibe 10 MG TAB PO SCH (09:05)
--- NOTE | 2019-06-06 11:40 | RAD ---
Chest one view HISTORY: Leukocytosis. FINDINGS: Cardiac silhouette is magnified by projection. Pulmonary vasculature is unremarkable. Media stinum is midline with right subclavian Port-A-Cath. Subtle ill-defined opacity at the right lower chest has the appearance of airspace disease of the rig ht posterior lung base. No evidence of pneumothorax. Prominent degenerative changes right shoulder. IMPRESSION: Subtle right posterior basilar infiltrate. Clinical correlation regarding other signs and symptoms of right basilar pneumonitis is required.
--- NOTE | 2019-06-06 12:36 | PDOC.HOSPP ---
- Subjective Encounter Date: 06/06/19 Encounter Time: 09:30 Subjective: pt up in bed at bedside. - Objective Vital Signs & Weight: Vital Signs (12 hours) Temp Pulse Resp BP Pulse Ox 06/06/19 09:10 80 18 114/79 06/06/19 08:55 88 19 98/58 L 06/06/19 08:40 82 17 117/72 06/06/19 08:25 97.9 F 83 18 114/60 93 L 06/06/19 07:33 93 L 06/06/19 05:31 102 H 16 121/77 93 L Weight Weight 172 lb I&O: 06/05/19 06/06/19 06/07/19 06:59 06:59 06:59 Intake Total 1490 Output Total 300 650 Balance -300 840 Result Diagrams: 06/06/19 03:21 06/06/19 03:21 Hospitalist ROS - Review of Systems Respiratory: denies: cough, dry, shortness of breath, hemoptysis, SOB with excertion, pleuritic pain, sputum, wheezing, other Cardiovascular: denies: chest pain, palpitations, orthopnea, paroxysmal noc. dyspnea, edema, light headedness, other Gastrointestinal: denies: nausea, vomiting, abdominal pain, diarrhea, constipation, melena, hematochezia, other Genitourinary: reports: other (spasms when he urinates) - Medication Medications: Active Medications Generic Name Dose Route Start Last Admin Trade Name Freq PRN Reason Stop Dose Admin Acetaminophen 650 mg 06/04/19 23:04 06/05/19 16:31 Tylenol PO 650 mg Q4H PRN Administration Headache/Fever/Mild Pain (1-3) Atorvastatin Calcium 40 mg 06/05/19 09:00 06/06/19 09:01 Lipitor PO 40 mg QAM JENN Administration Belladonna Alkaloids/Opium 30 mg 06/05/19 13:32 06/06/19 04:13 B & O [place] 30 mg Q8H PRN Administration Bladder Spasms Ezetimibe 10 mg 06/06/19 09:00 06/06/19 09:05 Zetia PO 10 mg QAM JENN Administration Sodium Chloride 1,000 mls @ 70 mls/hr 06/05/19 00:00 06/06/19 01:59 Normal Saline 0.9% IV 1,000 mls .[id number] JENN Administration Morphine Sulfate 2 mg 06/05/19 05:48 06/06/19 05:27 Morphine SLOW IVP 2 mg Q4H PRN Administration Pain Pantoprazole Sodium 40 mg 06/05/19 21:00 06/05/19 20:47 Protonix PO 40 mg 2100 JENN Administration Phenazopyridine HCl 97.5 mg 06/05/19 21:00 06/06/19 09:01 Azo Standard PO 97.5 mg BID JENN Administration Sodium Chloride 10 ml 06/05/19 09:00 06/06/19 09:03 Flush - Normal Saline IVF 10 ml Q12HR JENN Administration - Exam Neck: negative: supple, symmetric, no JVD, no thyromegaly, no lymphadenopathy, no carotid bruit, JVD Heart: negative: RRR, no murmur, no gallops, no rubs, normal peripheral pulses, irregular, diminshed peripheral pulses, murmur present, II/IV, III/IV Respiratory: negative: CTAB, no wheezes, no rales, no ronchi, normal chest expansion, no tachypnea, normal percussion, rales, rhonchi, tachypneic, wheezes Gastrointestinal: negative: soft, non-tender, non-distended, normal bowel sounds , no palpable masses, no hepatomegaly, no splenomegaly, no bruit, no guarding, no rigidity, tender to palpation, distended, diminished bowl sounds, voluntary guarding Hosp A/P (1) Hematuria Code(s): R31.9 - HEMATURIA, UNSPECIFIED Status: Acute (2) DVT (deep venous thrombosis) Code(s): I82.409 - ACUTE EMBOLISM AND THOMBOS UNSP DEEP VN UNSP LOWER EXTREMITY Status: Acute (3) Left hemiparesis Code(s): G81.94 - HEMIPLEGIA, UNSPECIFIED AFFECTING LEFT NONDOMINANT SIDE Status: Acute (4) CKD (chronic kidney disease), stage III Code(s): N18.3 - CHRONIC KIDNEY DISEASE, STAGE 3 (MODERATE) Status: Chronic (5) Urothelial carcinoma Code(s): C68.9 - MALIGNANT NEOPLASM OF URINARY ORGAN, UNSPECIFIED Status: Chronic (6) Leukocytosis Code(s): D72.829 - ELEVATED WHITE BLOOD CELL COUNT, UNSPECIFIED Status: Acute - Plan s/p ivc filter placement, pt is still having spasms when he urinates and he has urinary frequency. I did speak with urology who does not think he needs a turner due to low residual volume. I will start him on asa. He has had a recent stroke and afib he is a very high risk pt. He is also on statin. I did speak with his about hospice and code status. she will talk with the patient. Family wanted me to consult oncology which i feel is appropriate since he was suppose to get chemo on . will type and screen pt. will get cxr and blood cx for his leukocytes. i think it is reactive.
--- NOTE | 2019-06-06 16:06 | CON ---
DATE OF CONSULTATION: 06/06/2019 HISTORY OF PRESENT ILLNESS: Mr. Contreras is a 74-year-old male with a history of locally advanced ureteral transitional cell carcinoma, who had received cycle #1 of neoadjuvant chemotherapy with Adriamycin, gemcitabine, Taxol 2-1/2 weeks prior to this admission. Unfortunately, just after receiving his 1st cycle of neoadjuvant treatment, he had a cerebrovascular accident and developed a left hemiparesis. He was transferred to the rehabilitation unit, but on the day of this admission, he was noted to have a right lower extremity swelling and presented with a right lower extremity deep venous thrombosis. He was placed on Eliquis and was already on Plavix and aspirin. Unfortunately, he developed hematuria and now was having trouble with blood in his urine, continuous bleeding, and some issues with clot retention. This morning, an IVC filter was placed because of the need to stop the anticoagulation and he has been off the Eliquis for 24 hours. He continues to have bleeding at this point. Neurology is here to place a Huerta catheter. He does complain of pain with the attempt of urination. He still has flank pain and right groin pain. He has lost a significant amount of weight and he is very fatigued. He denies any fevers or chills. He denies any nausea or vomiting. He does think that he is much weaker than before and he does complain of pain in his leg. PAST MEDICAL HISTORY: 1. Recent diagnosis of ureteral transitional cell carcinoma. 2. Recent cerebrovascular accident. 3. Right lower extremity DVT on this hospitalization. 4. Coronary artery disease. 5. Hyperlipidemia. MEDICATIONS: 1. Tylenol p.r.n. 2. Aspirin 81 mg p.o. daily. 3. Lipitor 40 mg p.o. daily. 4. Belladonna alkaloids for bladder spasms. 5. Zetia 10 mg p.o. daily. 6. Morphine 2 mg IV q.4 hours p.r.n. 7. Zofran 4 mg IV q.6 hours p.r.n. 8. Protonix 40 mg p.o. daily. 9. Azo 97.5 mg p.o. b.i.d. ALLERGIES: BACTRIM. SOCIAL HISTORY: He denies any significant alcohol or tobacco use. He did use to work with chemicals. His is here and is quite supportive. FAMILY HISTORY: Noncontributory. PHYSICAL EXAMINATION: VITAL SIGNS: Temperature 97.5, pulse 87, O2 saturation 93% on room air, and blood pressure 107/68. GENERAL: He is lying supine, quite chronically ill-appearing now, in no acute distress. HEENT: Extraocular muscles are intact. Pupils are reactive to light. He has no oral cavity lesions. He does have some poor dentition. NECK: Supple without lymphadenopathy. CARDIOVASCULAR: Regular rhythm. LUNGS: Clear to auscultation bilaterally. ABDOMEN: Hypoactive bowel sounds. Soft, nontender, and nondistended. He does have some pain in the right groin. EXTREMITIES: He has 1 to 2+ pitting edema in the right leg. LABORATORY DATA: White blood cell count 19.9; hemoglobin 8.7, down from 11.3 two days ago, and platelets 492. Sodium 133, potassium 4.7, chloride 102, CO2 of 21, BUN 30, creatinine 2.1 up from 1.96, glucose 125, and calcium 8.2. ASSESSMENT: Mr. Contreras is a 74-year-old male with; 1. 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 2. Hypercoagulable state with recent cerebrovascular and right lower extremity deep venous thrombosis. 3. Hematuria with some clot retention and need of a Huerta catheter. 4. Anemia secondary to bleeding. 5. Global deconditioning and poor performance status, declining in the last 3 to 4 weeks. PLAN: 1. I discussed the overall diagnosis and prognosis with them. We did have a brief discussion about hospice, but he is not ready to make a decision. He would like to be a DNR at this time. 2. I would recommend the Huerta catheter placement and following his CBC, if his hemoglobin drops further, I would recommend transfusion. 3. Palliative Care has already been consulted. 4. He is only on daily aspirin. At this point, I would continue it given that he has a recent history of stroke. We will follow with you. Job ID: [id number]
[2019-06-06] MEDS: Aspirin 81 mg Enteric Coated Tablet PO SCH ×2 (17:04→17:05)
[2019-06-06] MEDS: Ondansetron PF 4 MG/2 ML Vial IVP PRN ×2 (17:11→21:53)
--- NOTE | 2019-06-06 17:18 | PRG ---
DATE OF SERVICE: 06/06/2019 INITIAL CONSULTATION: 06/05/2019. INITIAL REASON FOR CONSULTATION: 1. 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 Himanshu Chapman. 2. Gross hematuria. 3. Indwelling right ureteral stent. 4. Pain in the genital and suprapubic area consistent with bladder spasms. BRIEF HISTORY: Mr. Mina Contreras is a pleasant 74-year-old retired, white male, nonsmoker with a history of industrial exposure to plastics. 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 The patient presented to the Emergency Department on 06/04/2019, from a rehabilitation facility with complaints of right lower quadrant abdominal discomfort involving the genitals. He had concurrent gross hematuria. The patient had recently been started on Eliquis for a right lower extremity DVT. The patient was admitted to the hospital and I evaluated him on 06/05/2019. At that point, the patient had a bladder scan demonstrating about 130 mL postvoid residual. He did have some pain symptoms intermittently at the tip of the penis, which was consistent with the patient's stent pain. We did try belladonna and opioid suppositories overnight as well as phenazopyridine and the patient did not have resolution of his symptoms, instead started to retain more urine. Based on that complaint today, we think he is in urinary retention. PHYSICAL EXAMINATION: VITAL SIGNS: Temperature is 97.5, pulse 87, respirations 16, O2 saturation on room air is 93%, and blood pressure is 107/68. GENERAL: This is a pleasant awake, alert, white male, in no apparent distress. Does relate discomfort in the suprapubic area as well as the tip of his penis. HEAD, EYES, EARS, NOSE, AND THROAT: Extraocular movements are intact. Sclerae anicteric. Oropharynx is clear. NECK: Supple. LUNGS: Clear to auscultation bilaterally. CARDIAC: Regular rate and rhythm. ABDOMEN: Soft and nontender. GENITOURINARY: Phallus is circumcised. Small amount of blood present at the urethral meatus. The patient has been voiding apparently overflow into a urinal today. There is gross blood in the urinal. A bladder scan performed in the immediate postvoid state shows about 280 mL of postvoid residual. EXTREMITIES: The patient's right lower extremity is edematous consistent with the patient's DVT history. The patient's leg has also been accessed for placement of an IVC filter today. LABORATORY STUDIES: The patient's white count remains persistently elevated, currently at 19.9, minimally changed from 21,000 on admission. The neutrophil percentage is 78.5%, slightly up from yesterday. ANC number is also slightly up from yesterday, currently at 15.6. Serum chemistry showed the patient's blood urea nitrogen rising during admission to 30 with a creatinine also rising now at 2.12, indicating a degree of obstruction or inability to clear nitrogen from his urine at the present time. INTERVAL RADIOLOGIC STUDIES: A chest x-ray was obtained on 06/06/2019 at 7:43 a.m. This study shows subtle right posterior basilar infiltrate. The patient has some airspace type disease present as well. There is a right subclavian Port-A-Cath in place as well. The patient has metastatic disease not evident on this study as seen on previous CT study. ASSESSMENT AND PLAN: 1. Gross hematuria was likely secondary to combination of Eliquis indwelling stent and bladder and/or ureteral cancer. At the present time, the patient is demonstrating symptoms of urinary retention as well. 2. Urinary retention. Discussed with the patient. Advisability of placing Huerta catheter. He does have a history of stricture disease and attempted Huerta catheter placement today was unsuccessful. Therefore, I am recommending cystoscopic evaluation, placement of a Huerta catheter using cystoscopic means. 3. Bladder cancer, apparently metastatic. Discussed previously with the patient possibility of hospice given the current presentation. Based on that, I think he probably would benefit from that. He did have questions about his future and some questions about the life expectancy with his current degree of cancer. I did have a great discussion with him regarding that. He is under the care of Dr. Genna Alonso, who has evaluated him today and I will defer decision making to her regarding hospice, etc. Over 45 minutes consultation time exclusive of time spent for procedures was spent with the patient today. Job ID: [id number]
--- NOTE | 2019-06-06 17:41 | OP ---
DATE OF PROCEDURE: 06/06/2019 PREOPERATIVE DIAGNOSES: 1. Gross hematuria. 2. History of urethral stricture disease and/or bladder neck contracture. 3. History of bladder cancer, status post previous transurethral resection. Also, apparent right ureteral cancer, status post cystoscopy and stent placement. 4. Possible evidence of metastatic disease observed on CT scan at this admission including the patient's lungs. 5. Lower abdominal pain and persistent bladder spasms. POSTPROCEDURE DIAGNOSES: 1. Gross hematuria. 2. History of urethral stricture disease and/or bladder neck contracture. 3. History of bladder cancer, status post previous transurethral resection. Also, apparent right ureteral cancer, status post cystoscopy and stent placement. 4. Possible evidence of metastatic disease observed on CT scan at this admission including the patient's lungs. 5. Lower abdominal pain and persistent bladder spasms. 6. Clot retention. PROCEDURES PERFORMED: 1. Cystourethroscopy with clot evacuation. 2. Urethral stricture dilation. BRIEF HISTORY: Mr. Mina Contreras is a pleasant 74-year-old white male, former plastics industry worker, with a history of bladder cancer and gross hematuria. The patient apparently has upper tract disease and on this hospital admission, he appears to have evidence of potential metastatic disease in possibly 2 pelvic lymph nodes and the lungs. Based on the presentation, the patient's immediate management needs are for decompression of his bladder, which initially did not appear to be in retention, but overnight, has proceeded to formal retention. DESCRIPTION OF PROCEDURE: The patient was appropriately identified and informed written consent was obtained. The patient was identified using medical record number, date of , family member, and by self identification. His signed the consent. The patient was evaluated in his oncology floor bed. Cystoscopic evaluation was performed in usual manner. We sterilely prepped and draped the patient. There was blood visible at the urethral meatus. We prepped the patient's glans penis using chlorhexidine gluconate. We then applied viscous KY jelly per urethra. We cystoscopically evaluated the patient using a 14-Japanese [facility] flexible cystourethroscope. This was passed per urethra. Distal urethra appeared to be relatively patent. The patient approximately at the level of the urogenital diaphragm had an old false passage area. In addition, anterior to this, there was a urethral stricture. A 0.035 angled Glidewire was passed through this opening into the patient's bladder with the patient confirming sensation of catheter, wire, and bladder. We then utilized NexMed Follower dilators passed over wire sequentially dilating the patient up to a diameter of 22-Japanese. We then made a Councill-tip catheter out of a 3-way Silastic catheter using a 14-gauge IV. We then passed this well-lubricated over the Glidewire into the patient's bladder. He had an immediate return of grossly bloody urine. I removed the wire and subsequently inflated the balloon to 30 mL using sterile water. We performed bladder irrigation and hand irrigated multiple clots from the patient's bladder lining until the urine appeared to be reasonably clear. We were not able to clear all the clot using this methodology. We then placed the catheter to continuous bladder irrigation using CBI from a sterile saline 3 L bag. Urine was collected from the initial urine and sent for culture. There was a gross odor of infection about the patient's urine. He is not currently on antibiotics and we did go ahead and start him on Cipro based on his allergy profile to Bactrim. The patient's other QT interval medications will be stopped. COMPLICATIONS: None. OPERATIVE FINDINGS: 1. Urogenital diaphragm level urethral stricture. 2. Old false passage area posterior aspect of the patient's urethra at urogenital diaphragm. 3. Clot retention. 4. Otherwise, uncomplicated cystoscopic placement of Huerta catheter over Glidewire. Job ID: [id number]
[2019-06-06 19:07] LABS: Hemoglobin 8.3 g/dL (14.0-18.0)
[2019-06-06] MEDS: Trospium 20 MG TAB PO SCH (19:47)
[2019-06-06] MEDS: Ciprofloxacin 500 MG TAB PO SCH (19:47)
[2019-06-07] MEDS: Ciprofloxacin 500 MG TAB PO SCH (06:09)
[2019-06-07 06:10] LABS: Anion Gap 13 mmol/L (10-20); BUN (Urea Nitrogen) 33 mg/dL (8.4-25.7); Calc. Creatinine Clearance 31 mL/min (70-130); Calcium 8.1 mg/dL (7.8-10.44); Carbon Dioxide 22 mmol/L (23-31); Chloride 105 mmol/L (98-107); Estimated GFR-MDRD 29; Glucose 119 mg/dL (83-110); Potassium 5.1 mmol/L (3.5-5.1); Sodium 135 mmol/L (136-145)
[2019-06-07 06:46] LABS: Hemoglobin 7.7 g/dL (14.0-18.0); Mean Corpuscular HGB CONC 32.5 g/dL (32.0-36.0); Mean Corpuscular Hemoglobin 30.7 pg (27.0-31.0); Mean Corpuscular Volume 94.5 fL (78.0-98.0); Mean Platelet Volume 6.7 fL (7.4-10.4); Platelet Count 501 thou/uL (130-400); RBC Distribution Width 13.6 % (11.5-14.5); White Blood Cell (WBC) Count 22.2 thou/uL (4.8-10.8)
[2019-06-07 07:23] LABS: Band 12 % (5-11); Eosinophils 1 % (0-10); Lymphocytes 10 % (21-51); MDiff Complete? YES; Monocytes 7 % (0-10); Myelocyte 1 % (0-0); Neutrophil 69 % (42-75); Platelet Morphology Comment Appears Increased; Polychromasia MODERATE = 3-4 cells (100X) (0-2/hpf)
[2019-06-07] MEDS: Atorvastatin Calcium 40 MG TAB PO SCH (08:52)
[2019-06-07] MEDS: Ezetimibe 10 MG TAB PO SCH (08:52)
[2019-06-07] MEDS: Phenazopyridine HCl 97.5 MG TABLET PO SCH ×2 (08:52→22:30)
[2019-06-07] MEDS: Trospium 20 MG TAB PO SCH ×2 (08:53→21:36)
--- NOTE | 2019-06-07 11:00 | OP ---
DATE OF PROCEDURE: 06/06/2019 PREOPERATIVE DIAGNOSIS: Deep venous thrombosis with contraindication to anticoagulation with gross hematuria. PROCEDURE: Insertion of TrapEase inferior vena cava filter. CONTRAST: 5 mL. FLUOROSCOPY: 1 minute. DESCRIPTION OF PROCEDURE: After prepping and draping the left groin, lidocaine was infiltrated and under ultrasound guidance, the femoral vein was punctured on first pass. Wire was then placed up the IVC, where the catheter and sheath were advanced and a contrast venography obtained showing no thrombus in the IVC. The right renal vein was identified and based on preoperative CT scanning, left renal vein was known to be directly across and slightly more cephalad. The TrapEase filter was then deployed, sheath removed. The patient tolerated the procedure well. Job ID: [id number]
[2019-06-07] MEDS ORDERED: Piperacillin/Tazobactam 3.375 GM in Sodium Chloride 0.9% 100 ML IVPB SCH (12:00)
--- NOTE | 2019-06-07 12:56 | PDOC.PALCO ---
Palliative Care Consult - Consult Details Requesting Physician: Dr Hicks Reason for Consult: goals of care, complex decision-making Family Members Present: Johanny - Pertinent HPI 74 year old male with transitional cell carcinoma who had been receiving chemotherapy. Onset of right lower quadrant pain with no know triggering factors and nothing alleviated pain. Presented to the emergency room for evaluation, also gave history of recent diagnosis of ureter cancer and stent placement early mar. Evaluation in the emergency room and admission for further management. - Pertinent PMH Ureter cancer, transitional cell carcinoma, cad, hyperlipidemia, DVT - Social History Smoking Status: Never smoker Smoking: no tobacco exposure Alcohol Use: none Drug Use History: none Living Situation: ([facility]) - Medications MAR Reviewed: Yes - Allergies Allergies/Adverse Reactions: Allergies Allergy/AdvReac Type Severity Reaction Status Date / Time sulfamethoxazole Allergy Verified 05/07/19 11:55 [From Bactrim] tramadol Allergy Verified 05/07/19 11:55 trimethoprim [From Bactrim] Allergy Verified 05/07/19 11:55 - Subjective awake, alert. Complains of mild discomfort to sacrum related to limited movement in bed, discomfort to end of penis, fatigue, weakness, reflux. 10 point review otherwise negative - Objective Vital Signs: Vital Signs - Most Recent Temp Pulse Resp BP Pulse Ox 97.5 F L 103 H 20 122/75 93 L 06/07/19 07:01 06/07/19 07:01 06/07/19 07:01 06/07/19 07:01 06/07/19 07:01 Palliative Performance Scale: 30 - Physical Exam Constitutional: NAD Deviation from normal: chrinically ill appearing HEENT: PERRLA, moist MMs, sclera anicteric, EOMI Respiratory: unlabored breathing Cardiovascular: no significant murmur Gastrointestinal: soft, positive bowel sounds Neurological: moves all 4 limbs Psychiatric: normal affect, A&O x 3 Deviation from normal: tearful at times Skin: normal turgor Deviation from normal: pallor - Problem List (1) Palliative care encounter Code(s): Z51.5 - ENCOUNTER FOR PALLIATIVE CARE Current Visit: Yes Status: Acute (2) Hematuria Code(s): R31.9 - HEMATURIA, UNSPECIFIED Current Visit: Yes Status: Acute (3) Urothelial carcinoma Code(s): C68.9 - MALIGNANT NEOPLASM OF URINARY ORGAN, UNSPECIFIED Current Visit: No Status: Chronic - Plan/Recommendations Plan: Dr Villareal also present fo rpartial aspect of encounter. *Will order a compound of topical compound for application to sacrum *Adrianne Odom to initiate Hospice discussion when patient "stable" *Continue to support patient and as his desire is to transition to hospice for comfort measures when he is "stable" *Assist in clear identification as to benchmarks for "stable" [60] minutes spent on this encounter with >50% of the time in counseling and coordination of care. Thank you for this very appropriate consult.
[2019-06-07] MEDS: B & O PR PRN ×2 (13:02→19:44)
[2019-06-07] MEDS ORDERED: NEOMY SULF TOP PRN (13:23)
[2019-06-07] MEDS ORDERED: [UNRECOGNIZED DRUG - OTHER] TOP PRN (13:23)
[2019-06-07] MEDS: Sodium Chloride 0.9% 1,000 ML IV SCH ×3 (13:40→21:21)
--- NOTE | 2019-06-07 13:46 | PDOC.MOPN ---
Interval History: Continues to have blood in urine, no fevers - Vital Signs Vital Signs: Vital Signs (12 hours) Temp Pulse Resp BP Pulse Ox 06/07/19 07:01 97.5 F L 103 H 20 122/75 93 L 06/07/19 04:06 97.9 F 107 H 16 119/68 97 Weight Weight 172 lb - Physical Exam General: Alert, Oriented x3, No acute distress HEENT: Atraumatic, PERRLA, EOMI, Mucous membr. moist/pink Lungs: Clear to auscultation, Normal air movement Cardiovascular: Regular rate, Normal S1, Normal S2, No murmurs, Gallops, Rubs Abdomen: Normal bowel sounds, Soft, No tenderness, No hepatospenomegaly, No masses Extremities: Other (RLE edema) Neurological: Normal speech Psych/Mental Status: Mental status NL - Labs Result Diagrams: 06/07/19 05:29 06/07/19 05:29 Lab results: Laboratory Results - last 24 hr 06/07/19 05:29: WBC 22.2 H, RBC 2.50 L, Hgb 7.7 L, Hct 23.6 L, MCV 94.5, MCH 30.7, MCHC 32.5, RDW 13.6, Plt Count 501 H, MPV 6.7 L, Neutrophils % (Manual) 69 , Band Neuts % (Manual) 12 H, Lymphocytes % (Manual) 10 L, Monocytes % (Manual) 7, Eosinophils % (Manual) 1, Myelocytes % 1 H, Neutrophils # Not Reportable, Lymphocytes # Not Reportable, Plt Morphology Comment Appears Increased H, Polychromasia MODERATE = 3-4 cells H 06/07/19 05:29: Sodium 135 L, Potassium 5.1, Chloride 105, Carbon Dioxide 22 L, Anion Gap 13, BUN 33 H, Creatinine 2.21 H, Estimated GFR (MDRD) 29, Glucose 119 H, Calcium 8.1 06/06/19 18:57: Hgb 8.3 L, Hct 25.0 L 06/06/19 10:36: Blood Type O POSITIVE, Antibody Screen NEGATIVE, Crossmatch See Detail Status: lab reviewed by me A/P - Problem (1) DVT (deep venous thrombosis) Current Visit: Yes Code(s): I82.409 - ACUTE EMBOLISM AND THOMBOS UNSP DEEP VN UNSP LOWER EXTREMITY Status: Acute (2) Hematuria Current Visit: Yes Code(s): R31.9 - HEMATURIA, UNSPECIFIED Status: Acute (3) Urothelial carcinoma Current Visit: No Code(s): C68.9 - MALIGNANT NEOPLASM OF URINARY ORGAN, UNSPECIFIED Status: Chronic - Plan Plan: 1. Patient would like to go home with hospice. 2. CM consult for Hospice BV 3. supportive care
[2019-06-07] MEDS: Piperacillin/Tazobactam 3.375 GM in Sodium Chloride 0.9% 100 ML IVPB SCH ×2 (14:12→21:20)
--- NOTE | 2019-06-07 14:45 | PDOC.HOSPP ---
- Subjective Encounter Date: 06/07/19 Encounter Time: 10:30 Subjective: pt up in bed states that his bladder spasm has improved - Objective Vital Signs & Weight: Vital Signs (12 hours) Temp Pulse Resp BP Pulse Ox 06/07/19 07:01 97.5 F L 103 H 20 122/75 93 L 06/07/19 04:06 97.9 F 107 H 16 119/68 97 Weight Weight 172 lb I&O: 06/06/19 06/07/19 06/08/19 06:59 06:59 06:59 Intake Total 1490 1440 Output Total 650 3050 Balance 840 -1610 Result Diagrams: 06/07/19 05:29 06/07/19 05:29 Hospitalist ROS - Review of Systems Respiratory: denies: cough, dry, shortness of breath, hemoptysis, SOB with excertion, pleuritic pain, sputum, wheezing, other Cardiovascular: denies: chest pain, palpitations, orthopnea, paroxysmal noc. dyspnea, edema, light headedness, other Gastrointestinal: denies: nausea, vomiting, abdominal pain, diarrhea, constipation, melena, hematochezia, other - Medication Medications: Active Medications Generic Name Dose Route Start Last Admin Trade Name Freq PRN Reason Stop Dose Admin Acetaminophen 650 mg 06/04/19 23:04 06/05/19 16:31 Tylenol PO 650 mg Q4H PRN Administration Headache/Fever/Mild Pain (1-3) Aspirin 81 mg 06/06/19 17:00 06/06/19 17:05 Ecotrin PO 81 mg 1700 JENN Administration Atorvastatin Calcium 40 mg 06/05/19 09:00 06/07/19 08:52 Lipitor PO 40 mg QAM JENN Administration Belladonna Alkaloids/Opium 60 mg 06/06/19 19:49 06/07/19 13:02 B & O ID 60 mg Q6H PRN Administration Bladder Spasms Ezetimibe 10 mg 06/06/19 09:00 06/07/19 08:52 Zetia PO 10 mg QAM JENN Administration Sodium Chloride 1,000 mls @ 100 mls/hr 06/07/19 09:51 06/07/19 13:40 Normal Saline 0.9% IV Not Given .Q10H JENN Piperacillin Sod/Tazobactam 100 mls @ 200 mls/hr 06/07/19 14:00 06/07/19 14: 12 Sod 3.375 gm/ Sodium Chloride IVPB 100 mls 0200,0800,1400,2000 JENN Administration Morphine Sulfate 2 mg 06/05/19 05:48 06/06/19 05:27 Morphine SLOW IVP 2 mg Q4H PRN Administration Pain Ondansetron HCl 4 mg 06/04/19 23:04 06/06/19 21:53 Zofran IVP 4 mg Q6H PRN Administration Nausea/Vomiting Pantoprazole Sodium 40 mg 06/05/19 21:00 06/06/19 19:47 Protonix PO 40 mg 2100 JENN Administration Phenazopyridine HCl 97.5 mg 06/05/19 21:00 06/07/19 08:52 Azo Standard PO 97.5 mg BID JENN Administration Sodium Chloride 10 ml 06/05/19 09:00 06/07/19 14:11 Flush - Normal Saline IVF Not Given Q12HR JENN Trospium 20 mg 06/06/19 21:00 06/07/19 08:53 Trospium PO 20 mg BID JENN Administration - Exam Heart: RRR, no murmur Respiratory: CTAB, no wheezes Gastrointestinal: soft, non-tender Hosp A/P (1) Hematuria Code(s): R31.9 - HEMATURIA, UNSPECIFIED Status: Acute (2) DVT (deep venous thrombosis) Code(s): I82.409 - ACUTE EMBOLISM AND THOMBOS UNSP DEEP VN UNSP LOWER EXTREMITY Status: Acute (3) Left hemiparesis Code(s): G81.94 - HEMIPLEGIA, UNSPECIFIED AFFECTING LEFT NONDOMINANT SIDE Status: Acute (4) CKD (chronic kidney disease), stage III Code(s): N18.3 - CHRONIC KIDNEY DISEASE, STAGE 3 (MODERATE) Status: Chronic (5) Urothelial carcinoma Code(s): C68.9 - MALIGNANT NEOPLASM OF URINARY ORGAN, UNSPECIFIED Status: Chronic (6) Leukocytosis Code(s): D72.829 - ELEVATED WHITE BLOOD CELL COUNT, UNSPECIFIED Status: Acute - Plan s/p ivc filter placement, pt is still having spasms when he urinates and he has urinary frequency. I did speak with urology who does not think he needs a turner due to low residual volume. I will start him on asa. He has had a recent stroke and afib he is a very high risk pt. He is also on statin. I did speak with his about hospice and code status. she will talk with the patient. Family wanted me to consult oncology which i feel is appropriate since he was suppose to get chemo on . will type and screen pt. will get cxr and blood cx for his leukocytes. i think it is reactive. 06/07 will get speech to see pt for possible aspiration. will broaden his abx. will also give him one unit of blood. palliative to see pt. will continue asa/statin. possible hospice. will add ensure clear if he likes it.
--- NOTE | 2019-06-07 16:56 | PRG ---
DATE OF SERVICE: 06/07/2019 SUBJECTIVE: This is a 74-year-old male I am seeing today. I actually saw him 3 times today, and this dictation will be for those [address] Leone's notes. He saw him over the weekend for me, came in with clot retention and required a cysto at the bedside with a difficult placement of the Huerta catheter and started on CBI. His urine is still fairly bloody today. His vital signs; his pulse is up over 100. He is afebrile. He has a decent O2 saturations, and his blood pressure is still good. Urine culture so far is negative. Blood culture shows some coagulase-negative Staphylococcus. He is on Zosyn currently, and he received some Cipro yesterday. He is having bladder spasms off and on, but B and O suppositories are helping with that. I reviewed his CAT scan from the weekend. He now has new pulmonary nodules. Also, looks like he has adenopathy down in the right pelvis. In addition to this, he has recently had a DVT and was started on Eliquis. The hematuria got worse, Eliquis was stopped, and a vena cava filter was placed. Prior to that, a couple weeks of ago, he had had a stroke, and he was placed on Plavix. The Plavix has also been held. On talking with the patient and his , he talked to me about hospice care, and I think that is very reasonable. Hopefully, we can get this hematuria to stop or to get much better off his anticoagulation. I did talk with Dr. Alonso and also was in contact with Dr. Olaf Villareal, his primary care doctor about this. So, when I first saw him this morning, we went ahead and hand irrigated some clots out through the indwelling catheter, which is a 20-Romanian. When I came back to see him, he was still bloody, so we removed that catheter. I did a Betadine prep, placed 2% Xylocaine jelly topically per urethra and was able to pass a 24-Romanian Huerta 3-way. I had cut a slightly larger hole in the drainage port, and we were able to irrigate out a few more clots, and then it was much easier than to place him on CBI. I came back to see him later in the day, which is currently now, and his urine is actually showing a great deal of improvement, and it appears to be significantly clearer than it was earlier today, although still red, but much better considering he is not on that brisk of a drip currently. My hopes will be that off the Plavix and off the Eliquis that this bleeding will stop for him or at least become minimal and off. I talked him about removing the catheter in a day or two; however, he is wondering if he should keep the catheter in as he has been getting weaker by the day, and we will see how this is over the next day or two. If he does want to go home with the catheter in for hospice care, then we could look at changing this out to a smaller catheter. We will find it, follow his urine culture as it returns, continued the bladder irrigation tonight. I will see him again in the morning. Job ID: [id number]
[2019-06-07] MEDS: Aspirin 81 mg Enteric Coated Tablet PO SCH (19:14)
[2019-06-07] MEDS: NEOMY SULF TOP PRN ×2 (19:45→19:51)
[2019-06-07] MEDS: [UNRECOGNIZED DRUG - OTHER] TOP PRN ×2 (19:45→19:51)
[2019-06-07] MEDS: Ondansetron PF 4 MG/2 ML Vial IVP PRN (19:50)
[2019-06-08] MEDS: Piperacillin/Tazobactam 3.375 GM in Sodium Chloride 0.9% 100 ML IVPB SCH ×4 (01:12→20:35)
[2019-06-08] MEDS: B & O PR PRN ×2 (02:48→16:44)
[2019-06-08] MEDS: Atorvastatin Calcium 40 MG TAB PO SCH (08:47)
[2019-06-08] MEDS: Ezetimibe 10 MG TAB PO SCH (08:47)
[2019-06-08] MEDS: Trospium 20 MG TAB PO SCH ×2 (08:47→20:43)
[2019-06-08] MEDS: Phenazopyridine HCl 97.5 MG TABLET PO SCH ×2 (08:51→20:43)
[2019-06-08] MEDS: Sodium Chloride 0.9% 1,000 ML IV SCH ×2 (08:59→20:36)
[2019-06-08 10:51] LABS: #Eosinphils 0.3 thou/uL (0.0-0.7); #Lymphocytes 1.6 thou/uL (1.20-3.40); #Monocytes 3.4 thou/uL (0.11-0.59); #Neutrophils 19.3 thou/uL (1.40-6.50); %Basophils 0.1 % (0.0-1.0); %Eosinophils 1.4 % (0.0-10.0); %Lymphocytes 6.6 % (21.0-51.0); %Monocytes 13.7 % (0.0-10.0); %Neutrophils 78.3 % (42.0-75.0); Hemoglobin 8.8 g/dL (14.0-18.0); Mean Corpuscular Hemoglobin 31.4 pg (27.0-31.0); Mean Corpuscular Volume 95.3 fL (78.0-98.0); Platelet Count 494 thou/uL (130-400); RBC Distribution Width 13.9 % (11.5-14.5); Red Blood Cell (RBC) Count 2.81 mill/uL (4.70-6.10); White Blood Cell (WBC) Count 24.6 thou/uL (4.8-10.8)
[2019-06-08 10:54] LABS: Anion Gap 15 mmol/L (10-20); BUN (Urea Nitrogen) 33 mg/dL (8.4-25.7); Calc. Creatinine Clearance 30 mL/min (70-130); Carbon Dioxide 17 mmol/L (23-31); Chloride 108 mmol/L (98-107); Estimated GFR-MDRD 27; Glucose 119 mg/dL (83-110); Potassium 4.5 mmol/L (3.5-5.1); Sodium 135 mmol/L (136-145)
[2019-06-08] MEDS: Aspirin 81 mg Enteric Coated Tablet PO SCH (16:44)
--- NOTE | 2019-06-08 17:10 | PDOC.HOSPP ---
- Subjective Encounter Date: 06/08/19 Encounter Time: 12:45 Subjective: pt up in bed states his spasms have improved. - Objective Vital Signs & Weight: Vital Signs (12 hours) Temp Pulse Resp BP Pulse Ox 06/08/19 08:00 98.5 F 93 18 127/71 93 L Weight Weight 172 lb I&O: 06/07/19 06/08/19 06/09/19 06:59 06:59 06:59 Intake Total 1440 350 Output Total 3050 1100 1000 Balance -1610 -750 -1000 Result Diagrams: 06/08/19 10:36 06/08/19 10:36 Hospitalist ROS - Medication Medications: Active Medications Generic Name Dose Route Start Last Admin Trade Name Freq PRN Reason Stop Dose Admin Acetaminophen 650 mg 06/04/19 23:04 06/05/19 16:31 Tylenol PO 650 mg Q4H PRN Administration Headache/Fever/Mild Pain (1-3) Aspirin 81 mg 06/06/19 17:00 06/08/19 16:44 Ecotrin PO 81 mg 1700 JENN Administration Atorvastatin Calcium 40 mg 06/05/19 09:00 06/08/19 08:47 Lipitor PO 40 mg QAM JENN Administration Belladonna Alkaloids/Opium 60 mg 06/06/19 19:49 06/08/19 16:44 B & O MT 60 mg Q6H PRN Administration Bladder Spasms Neomycin/Polymyxin/Bacitracin 0 gm 06/07/19 13:31 06/07/19 19:51 30 gm/ Zinc Oxide 30 gm TOP 1 oint PRN PRN Administration Skin Irriatation Ezetimibe 10 mg 06/06/19 09:00 06/08/19 08:47 Zetia PO 10 mg QAM JENN Administration Sodium Chloride 1,000 mls @ 100 mls/hr 06/07/19 09:51 06/08/19 08:59 Normal Saline 0.9% IV 1,000 mls .Q10H JENN Administration Piperacillin Sod/Tazobactam 100 mls @ 200 mls/hr 06/07/19 14:00 06/08/19 13: 51 Sod 3.375 gm/ Sodium Chloride IVPB 100 mls 0200,0800,1400,2000 JENN Administration Morphine Sulfate 2 mg 06/05/19 05:48 06/06/19 05:27 Morphine SLOW IVP 2 mg Q4H PRN Administration Pain Ondansetron HCl 4 mg 06/04/19 23:04 06/07/19 19:50 Zofran IVP 4 mg Q6H PRN Administration Nausea/Vomiting Pantoprazole Sodium 40 mg 06/05/19 21:00 06/07/19 22:30 Protonix PO Not Given 2100 JENN Phenazopyridine HCl 97.5 mg 06/05/19 21:00 06/08/19 08:51 Azo Standard PO 97.5 mg BID JENN Administration Sodium Chloride 10 ml 06/05/19 09:00 06/08/19 08:51 Flush - Normal Saline IVF 10 ml Q12HR JENN Administration Sodium Chloride 10 ml 06/05/19 08:42 06/07/19 19:52 Flush - Normal Saline IVF 10 ml PRN PRN Administration Saline Flush Trospium 20 mg 06/06/19 21:00 06/08/19 08:47 Trospium PO 20 mg BID JENN Administration Hosp A/P (1) Hematuria Code(s): R31.9 - HEMATURIA, UNSPECIFIED Status: Acute (2) DVT (deep venous thrombosis) Code(s): I82.409 - ACUTE EMBOLISM AND THOMBOS UNSP DEEP VN UNSP LOWER EXTREMITY Status: Acute (3) Left hemiparesis Code(s): G81.94 - HEMIPLEGIA, UNSPECIFIED AFFECTING LEFT NONDOMINANT SIDE Status: Acute (4) CKD (chronic kidney disease), stage III Code(s): N18.3 - CHRONIC KIDNEY DISEASE, STAGE 3 (MODERATE) Status: Chronic (5) Urothelial carcinoma Code(s): C68.9 - MALIGNANT NEOPLASM OF URINARY ORGAN, UNSPECIFIED Status: Chronic (6) Leukocytosis Code(s): D72.829 - ELEVATED WHITE BLOOD CELL COUNT, UNSPECIFIED Status: Acute - Plan s/p ivc filter placement, pt is still having spasms when he urinates and he has urinary frequency. I did speak with urology who does not think he needs a turner due to low residual volume. I will start him on asa. He has had a recent stroke and afib he is a very high risk pt. He is also on statin. I did speak with his about hospice and code status. she will talk with the patient. Family wanted me to consult oncology which i feel is appropriate since he was suppose to get chemo on . will type and screen pt. will get cxr and blood cx for his leukocytes. i think it is reactive. 06/07 will get speech to see pt for possible aspiration. will broaden his abx. will also give him one unit of blood. palliative to see pt. will continue asa/statin. possible hospice. will add ensure clear if he likes it. 06/08 not sure if pt's will be able to take care of him at home. asked transplant case manager to see if his insurance will allow more frequent visits. pt's CBI will be discontinued zachariah and his Turner will be changed in am. He may then go home with hospice.
[2019-06-08] MEDS: Morphine 2 MG/ML SYRINGE SLOW IVP PRN (20:49)
[2019-06-09] MEDS: Piperacillin/Tazobactam 3.375 GM in Sodium Chloride 0.9% 100 ML IVPB SCH ×4 (02:31→20:02)
[2019-06-09] MEDS: Phenazopyridine HCl 97.5 MG TABLET PO SCH ×2 (09:32→20:04)
[2019-06-09] MEDS: Atorvastatin Calcium 40 MG TAB PO SCH (09:32)
[2019-06-09] MEDS: Ezetimibe 10 MG TAB PO SCH (09:33)
[2019-06-09] MEDS: Trospium 20 MG TAB PO SCH ×2 (09:33→20:07)
[2019-06-09] MEDS: Sodium Chloride 0.9% 1,000 ML IV SCH ×3 (09:40→22:08)
--- NOTE | 2019-06-09 09:46 | PRG ---
DATE OF SERVICE: 06/09/2019 This is a 74-year-old white male, I am seeing today on oncology floor, room 134. 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 He came in with hematuria on the weekend on Eliquis and Plavix, has been held. CAT scan showed pulmonary nodules and right pelvic lymphadenopathy. He has a catheter in on continuous bladder irrigation. Urine is still bloody today, it is about the same as it was yesterday. He had shown improvement, but that has not been from yesterday to today. His vital signs are still stable. His pulse is around 100. Microbiology shows his urine culture is negative. He is still on Zosyn right now. His blood work from today is pending. His creatinine yesterday was 2.3. His hemoglobin was 8.8 and his white count was still elevated yesterday. I spent about 20 minutes hand irrigating his bladder, used about a liter of saline, can get no clots out. To me, it looks like it is old blood at this point, it is kind of maroon color, not bright red. My guess is that he probably has a fairly large organized clot in his bladder that staining the urine. I talked with him about giving him one more day to see if this will clear and if it does not, take him to the OR tomorrow, sedating him, looking in, and trying to get this clot out, seeing if we can find anything in the bladder that is bleeding, try to cauterize that, in hopes we can get his urine to clear up enough that he can go home off continuous bladder irrigation. He is agreeable to this, so we will see how he does today. His catheter has been draining well on a fairly slow CBI drip, it is just not clearing, it is just staying bloody, so we do not have a way to really get him home yet. Continue him on his antibiotics. Job ID: [id number]
[2019-06-09] MEDS ORDERED: Polyethylene Glycol 3350 17 GM Packet PO PRN (13:37)
[2019-06-09] MEDS ORDERED: Bisacodyl 5 MG TAB PO SCH (13:45)
[2019-06-09] MEDS ORDERED: Polyethylene Glycol 3350 17 GM Packet PO SCH (13:45)
--- NOTE | 2019-06-09 16:56 | PDOC.HOSPP ---
- Subjective Encounter Date: 06/09/19 Encounter Time: 10:00 Subjective: pt up in bed no complains - Objective Vital Signs & Weight: Vital Signs (12 hours) Temp Pulse Resp BP Pulse Ox 06/09/19 08:00 98.4 F 98 18 118/69 93 L Weight Weight 172 lb I&O: 06/08/19 06/09/19 06/10/19 06:59 06:59 06:59 Intake Total 350 Output Total 1100 2100 Balance -750 -2100 Result Diagrams: 06/08/19 10:36 06/08/19 10:36 Hospitalist ROS - Review of Systems Respiratory: denies: cough, dry, shortness of breath, hemoptysis, SOB with excertion, pleuritic pain, sputum, wheezing, other Cardiovascular: denies: chest pain, palpitations, orthopnea, paroxysmal noc. dyspnea, edema, light headedness, other Gastrointestinal: denies: nausea, vomiting, abdominal pain, diarrhea, constipation, melena, hematochezia, other - Medication Medications: Active Medications Generic Name Dose Route Start Last Admin Trade Name Freq PRN Reason Stop Dose Admin Acetaminophen 650 mg 06/04/19 23:04 06/05/19 16:31 Tylenol PO 650 mg Q4H PRN Administration Headache/Fever/Mild Pain (1-3) Aspirin 81 mg 06/06/19 17:00 06/08/19 16:44 Ecotrin PO 81 mg 1700 JENN Administration Atorvastatin Calcium 40 mg 06/05/19 09:00 06/09/19 09:32 Lipitor PO 40 mg QAM JENN Administration Belladonna Alkaloids/Opium 60 mg 06/06/19 19:49 06/08/19 16:44 B & O MN 60 mg Q6H PRN Administration Bladder Spasms Neomycin/Polymyxin/Bacitracin 0 gm 06/07/19 13:31 06/07/19 19:51 30 gm/ Zinc Oxide 30 gm TOP 1 oint PRN PRN Administration Skin Irriatation Ezetimibe 10 mg 06/06/19 09:00 06/09/19 09:33 Zetia PO 10 mg QAM JENN Administration Sodium Chloride 1,000 mls @ 100 mls/hr 06/07/19 09:51 06/09/19 09:40 Normal Saline 0.9% IV 1,000 mls .Q10H JENN Administration Piperacillin Sod/Tazobactam 100 mls @ 200 mls/hr 06/07/19 14:00 06/09/19 14: 30 Sod 3.375 gm/ Sodium Chloride IVPB 100 mls 0200,0800,1400,2000 JENN Administration Morphine Sulfate 2 mg 06/05/19 05:48 06/08/19 20:49 Morphine SLOW IVP 2 mg Q4H PRN Administration Pain Ondansetron HCl 4 mg 06/04/19 23:04 06/07/19 19:50 Zofran IVP 4 mg Q6H PRN Administration Nausea/Vomiting Pantoprazole Sodium 40 mg 06/05/19 21:00 06/08/19 20:43 Protonix PO 40 mg 2100 JENN Administration Phenazopyridine HCl 97.5 mg 06/05/19 21:00 06/09/19 09:32 Azo Standard PO 97.5 mg BID JENN Administration Sodium Chloride 10 ml 06/05/19 09:00 06/09/19 09:35 Flush - Normal Saline IVF 10 ml Q12HR JENN Administration Sodium Chloride 10 ml 06/05/19 08:42 06/07/19 19:52 Flush - Normal Saline IVF 10 ml PRN PRN Administration Saline Flush Trospium 20 mg 06/06/19 21:00 06/09/19 09:33 Trospium PO 20 mg BID JENN Administration - Exam Heart: negative: RRR, no murmur, no gallops, no rubs, normal peripheral pulses, irregular, diminshed peripheral pulses, murmur present, II/IV, III/IV Respiratory: negative: CTAB, no wheezes, no rales, no ronchi, normal chest expansion, no tachypnea, normal percussion, rales, rhonchi, tachypneic, wheezes Gastrointestinal: negative: soft, non-tender, non-distended, normal bowel sounds , no palpable masses, no hepatomegaly, no splenomegaly, no bruit, no guarding, no rigidity, tender to palpation, distended, diminished bowl sounds, voluntary guarding Hosp A/P (1) Hematuria Code(s): R31.9 - HEMATURIA, UNSPECIFIED Status: Acute (2) DVT (deep venous thrombosis) Code(s): I82.409 - ACUTE EMBOLISM AND THOMBOS UNSP DEEP VN UNSP LOWER EXTREMITY Status: Acute (3) Left hemiparesis Code(s): G81.94 - HEMIPLEGIA, UNSPECIFIED AFFECTING LEFT NONDOMINANT SIDE Status: Acute (4) CKD (chronic kidney disease), stage III Code(s): N18.3 - CHRONIC KIDNEY DISEASE, STAGE 3 (MODERATE) Status: Chronic (5) Urothelial carcinoma Code(s): C68.9 - MALIGNANT NEOPLASM OF URINARY ORGAN, UNSPECIFIED Status: Chronic (6) Leukocytosis Code(s): D72.829 - ELEVATED WHITE BLOOD CELL COUNT, UNSPECIFIED Status: Acute - Plan s/p ivc filter placement, pt is still having spasms when he urinates and he has urinary frequency. I did speak with urology who does not think he needs a turner due to low residual volume. I will start him on asa. He has had a recent stroke and afib he is a very high risk pt. He is also on statin. I did speak with his about hospice and code status. she will talk with the patient. Family wanted me to consult oncology which i feel is appropriate since he was suppose to get chemo on . will type and screen pt. will get cxr and blood cx for his leukocytes. i think it is reactive. 06/07 will get speech to see pt for possible aspiration. will broaden his abx. will also give him one unit of blood. palliative to see pt. will continue asa/statin. possible hospice. will add ensure clear if he likes it. 06/08 not sure if pt's will be able to take care of him at home. asked employment evaluator/case manager to see if his insurance will allow more frequent visits. pt's CBI will be discontinued zachariah and his Turner will be changed in am. He may then go home with hospice. 06/09 pt will go home with hospice in am. will continue current abx.
[2019-06-09] MEDS: Aspirin 81 mg Enteric Coated Tablet PO SCH (20:07)
[2019-06-09] MEDS: B & O PR PRN (21:11)
[2019-06-09] MEDS: Morphine 2 MG/ML SYRINGE SLOW IVP PRN (21:11)
[2019-06-09] MEDS: Ondansetron PF 4 MG/2 ML Vial IVP PRN (23:24)
[2019-06-10] MEDS ORDERED: Promethazine HCl 12.5 MG in Sodium Chloride 0.9% 50 ML IVPB SCH (01:30)
[2019-06-10] MEDS: Piperacillin/Tazobactam 3.375 GM in Sodium Chloride 0.9% 100 ML IVPB SCH ×3 (02:27→15:27)
[2019-06-10] MEDS: Ezetimibe 10 MG TAB PO SCH (08:17)
[2019-06-10] MEDS: Phenazopyridine HCl 97.5 MG TABLET PO SCH (08:17)
[2019-06-10] MEDS: Atorvastatin Calcium 40 MG TAB PO SCH (08:17)
[2019-06-10] MEDS: Trospium 20 MG TAB PO SCH (08:18)
[2019-06-10] MEDS ORDERED: Polyethylene Glycol 3350 17 GM Packet PO SCH (09:00)
[2019-06-10 11:42] VITALS: BP 129/76; TEMP 97.9
[2019-06-10] MEDS ORDERED: Hyoscyamine Sulfate SL 0.125 mg Tablet PO PRN (12:10)
--- NOTE | 2019-06-10 12:36 | PRG ---
DATE OF SERVICE: 06/10/2019 I am seeing this patient in Oncology for today. His vital signs, he is afebrile. His pulse is around 100. His O2 sats are starting to diminish some. His blood pressures have come down a little bit. I saw him earlier this morning about 5 hours ago and we stopped his bladder irrigation, as his urine did not look that bad. Since that time, it has gotten a dark, kind of maroonish color. I think this is probably not active bleeding. I think this is probably just old blood that is staining the urine. The catheter is not occluded. His bladder is not distended. He has not had any bladder spasm or bladder spasm medicine for about 13 hours now. He has not required of any pain medication according to his nurse. He has been vomiting through the night off and on including vomiting some bloody emesis. His abdomen is soft to touch. There is no rebound or guarding. He does have some right lower quadrant tenderness. I think this is probably related to the tumor and the lymph nodes. He may even have had some bleeding around this when he was anticoagulated. We had looked at possibly taking to the OR today after talking with him and his in the way that he has deteriorated in the last 24 hours, and we are not going to do that. His catheter appears to be draining, so we will end up leaving this larger caliber catheter in. The decision will be made as the day goes on over the next couple of days, whether he can actually get home or not. His has said that everything is setup from at home with [facility] and we are going to leave this up to them. I think he should stop using the B and O suppositories today to see how he does. This may be difficult to get for him on an outpatient basis. We will start him on some Levsin sublingual 0.125 mg q.4 hours p.r.n. spasm and I have given a prescription in the chart, actually that I gave to his that she can get to use for him at home. His clinical course has deteriorated and he is on [facility] and not desiring at this point to pursue anything more in terms of treatment, so for the time being, we will leave the [place] in. It is a good caliber one, it is draining fine. If he stays in and we need to hand irrigate it or restart CBI, we can. If he has trouble at home, hopefully, the Hospice nurse could flush the catheter, if needs be. Job ID: [id number]
[2019-06-10] MEDS: Ondansetron PF 4 MG/2 ML Vial IVP PRN (15:43)
--- NOTE | 2019-06-11 05:16 | DIS ---
DATE OF ADMISSION: 06/04/2019 DATE OF DISCHARGE: 06/10/2019 DISCHARGE DIAGNOSES: As of the following. 1. Hematuria. 2. Newly diagnosed deep venous thrombosis. 3. Left-sided hemiparesis from recent stroke. 4. Chronic kidney disease, stage 3. 5. Urothelial carcinoma. 6. Leukocytosis. HOSPITAL COURSE: The patient is a 74-year-old male, who initially presented to the hospital with hematuria. He was on Eliquis for newly diagnosed occlusive DVT. He was also on aspirin and at this time his aspirin and his Eliquis were discontinued. The patient did undergo an IVC filter placed by [facility]. The patient's hematuria continued to worsen. Urology also was consulted, did a continuous bladder irrigation, which helped relieve his symptoms. Oncology also was consulted. The patient had significant swelling to his right lower extremity and also he has weakness to his left upper and lower extremities due to recent stroke. At this time, aspirin was continued and also statin was continued. The patient continued to decline clinically. We did give him some IV antibiotics. However, he started having more symptoms of nausea, vomiting, abdominal pain, and he was not a candidate for chemotherapy given his significant decline and multiple comorbidities. The patient and family chose to go the hospice route. Hospice palliative care was consulted. Hospice came by to see the patient and the patient will be discharged home with hospice services. MEDICATIONS: His medications will be as of the following. 1. Aspirin 81 mg daily. 2. Atorvastatin 40 mg daily. 3. Trospium 20 mg twice a day. 4. q.6 hours p.r.n. PHYSICAL EXAMINATION: VITAL SIGNS: Temperature of 98.8, heart rate 99, respirations 29, O2 saturation 91% on room air, blood pressure 129/76. GENERAL: He is awake, alert, and oriented x3. Does not appear in any distress, however, is still nauseated. He has had a small bowel movement last night. by the bedside, updated. CV: S1, S2 present. No murmurs, rubs, or gallops. ABDOMEN: Soft, mild tenderness to right lower quadrant. Bowel sounds are present x2. EXTREMITIES: He has significant swelling to his right lower extremity and paralysis to his left lower extremity. Again, the patient will be discharged home with hospice. I did give him a unit of blood while he was in the hospital and treated him for possible UTI; however, his growth for 36 hours was negative. He did have a culture that grew coagulase-negative Staph, most likely contaminant. His repeat cultures were negative. Job ID: [id number]
== END 2019-06-10 16:02 | disposition home or self-care (01) | DRG 674 ==
LOC: ERS 19:26 → ONC 22:30
PROVIDERS: ADMIT Internal Medicine; ATTEND Internal Medicine
PROC: 06H03DZ Insertion of Intraluminal Device into Inferior Vena Cava, Percutaneous Approach (ICD-10-PCS; principal; 2019-06-06)
PROC: 0TCB8ZZ Extirpation of Matter from Bladder, Via Natural or Artificial Opening Endoscopic (ICD-10-PCS; 2019-06-06)
DX: T83.83XA Hemorrhage due to genitourinary prosthetic devices, implants and grafts, initial encounter (principal); I82.409 Acute embolism and thrombosis of unspecified deep veins of unspecified lower extremity; C68.9 Malignant neoplasm of urinary organ, unspecified; N17.9 Acute kidney failure, unspecified; C66.9 Malignant neoplasm of unspecified ureter; D68.59 Other primary thrombophilia; I69.954 Hemiplegia and hemiparesis following unspecified cerebrovascular disease affecting left non-dominant side; R31.0 Gross hematuria; I25.10 Atherosclerotic heart disease of native coronary artery without angina pectoris; Z95.5 Presence of coronary angioplasty implant and graft; E78.5 Hyperlipidemia, unspecified; C67.9 Malignant neoplasm of bladder, unspecified; N18.3 Chronic kidney disease, stage 3 (moderate); Y84.6 Urinary catheterization as the cause of abnormal reaction of the patient, or of later complication, without mention of misadventure at the time of the procedure; R33.9 Retention of urine, unspecified; D64.9 Anemia, unspecified; N32.89 Other specified disorders of bladder
CPT/HCPCS: 36415; 36430; 37191; 71045; 74177; 76942; 80048; 80053; 81003; 81015; 85025; 86850; 86900; 86901; 87040; 87086; 87149; 96365; 96375; 96376; C1769; C1880; J0696; J1644; J2001; J2270; J2405; J2543; J2550; J3010; J3490; P9016; S0028